=== PATIENT | male | born 1945 ===

== ENCOUNTER 2024-11-04 11:14 | Outpatient (AMB) | payer MEDICARE, SELFPAY ==
--- OUTSIDE RECORDS SUMMARY | 2024-11-04 12:46 | XMS_ITS | Patient Health Record ---
Author Organization [facility] Address [address] [facility] [address] [place] [address] Care Team Providers Care Towboat Captain Name Role Phone Arcadio fishman Primary Care Provider Unavailabl e Allergies Allergen (clinical drug ingredient) Drug/Non Drug Allergy documented on EMR Reaction Allergy Type Onset Date Status seasonal (uncoded) Unknown Allergy A ctive Reason For Referral No Information Medications Medication SIG (Take, Route, Frequency, Duration) Notes Start Date End Date Status Flomax 0.4 MG 1 capsule Orally Once a day Not-Taking Medrol 4 MG as directed Orally Not-Taking oxyCODONE HCl 5 MG 1 tablet as needed for severe pain Orally every 6 hrs; Duration: 5 days 09/12/2021 Not-Taking Multivitamin - 1 tablet Orally Once a day Active Cetirizine HCl 10 MG 1 tablet Orally Once a day Active Atorvastatin Calcium Not-Taking Losartan Potassium 25 MG 1 tablet Orally Once a day 1/2 tablet daily Active Aspirin 325 MG 1 tablet Orally Once a day; Duration: 90 day(s) 09/12/2021 Not-Taking Atorvastatin Calcium 20 MG 1 tablet Orally Once a day Active EpiPen 2-Joni 0.3 MG/0.3ML as directed Injection Not-Taking Levitra 20 MG 1 tablet 60 minutes before sexual activity as needed Orally Once a day Not-Taking Ibuprofen 600 MG 1 tablet with food or milk as needed Orally every 6 hrs; Duration: 30 days 09/12/2021 Not-Taking Acetaminophen Extra Strength 500 MG 1 tablet as needed Orally every 6 hrs; Duration: 30 days 09/12/2021 Not-Taking Problems Problem Type SNOMED Code ICD Code Onset Dates Problem Status W/U Status Risk Notes Problem Calcium deposits in tendon (186283863) 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) Active confirmed Problem Calcaneal spur (41537446) 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 Problem Rupture of left Achilles tendon (6066365475709 9100) Rupture of left Achilles tendon, subsequent encounter (S86.012D) Active confirmed Problem Non-traumatic rupture of Achilles tendon (996887912) 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 Plan Of Treatment Pending Test Test Name Order Date CBC, Platelet; No Differential Ultrasound : Ankle Brachial Indices 05/2021 Ultrasound : Artery Doppler Low Ext Bila t 04/21/2021 X ray : Foot, left 3v 04/21/2021 BASIC METABOLIC PANEL 07/27/2021 WALKING BOOT PNEUMATIC AND/OR VAC 2021 WALKING BOOT PNEUMATIC AND/OR VAC 2021 Insurance Providers Payer Name Payer Address Payer Phone Subscriber Number Group Number Insured Name Patient Relationship to Insured Coverage Start Date Coverage End Date Medicare of [place] [address] [place] [phone] [id number] Kolton Bosch Self - patient is the insured [employer] [address] [place] [address] [phone] [id number] Kolton Bosch Self - patient is the insured Medical (General) History Medical History History ICD Code contact dermatitis coronary atherosclerosis gallstone hyperlipidemia nephrolithiasis history CAD urolithiasis COVID vaccinated X 3 (Moderna) Surgical History Surgery Date(Month/Year) colonoscopy 09/16/2018 rotator cuff repair stent placement for urolithiasis 08/2021 Left Achilles repair with FHL tendon tra nsfer. 08/2021 Hospitalization History Reason Date(Month/Year) Urosepsis 08/2021
--- OUTSIDE RECORDS SUMMARY | 2024-11-04 12:46 | XMS_ITS | Clinical Summary ---
Author Organization [facility] Address [address] [facility] [address] [place] [address] Phone Care Team Providers Care Bilingual Receptionist Name Role Phone Arcadio Rivas DO Primary Care Provider [phone] Allergies No known active allergies Medications aspirin (ST KAREN) 81 MG EC tablet Take 81 mg by mouth 3 Active Multiple Vitamin (MULTIVITAMIN ADULT PO) Daily, 0 Refills, Maintenance, 09/13/22 8:39:00 EDT, Partial fill upon patient request if the prescription is for a schedule II opioid drug. 3 Active atorvastatin (LIPITOR) 20 MG tablet Take 20 mg by mouth 1 (one) time each day Active docusate sodium (COLACE) 100 MG capsule Take 100 mg by mouth 1 (one) time each day Active cetirizine (ZyrTEC) 10 MG tablet Take 10 mg by mouth 1 (one) time each day 2 Active acetaminophen (TYLENOL) 500 MG tablet Take 500 mg by mouth if needed for mild pain Active Active Problems Problem Noted Date Diagnosed Date Constipation 07/24/2023 Coronary atherosclerosis 07/24/2023 Gallstone 07/24/2023 Hyperlipidemia 07/24/2023 Impaired fasting glucose 07/24/2023 Nephrolithiasis 07/24/2023 Obese class I 07/24/2023 Obstructive sleep apnea syndrome 07/24/2023 Encounters Date Type Department Care Team Description 10/09/2024 Orders Only [facility] [address] [phone] Madhu Delcid MD Stone in kidney; Other acute kidney failure (HCC) from Last 3 Months Immunizations Immunization Administration Dates Next Due Influenza Whole 01/08/2019 Influenza, Unspecified 01/05/2022,01/14/2021,02/2018,01/17/2016 Moderna SARS-COV-2 07/29/2021,06/18/2020, 021 Pfizer SARS-COV-2 01/19/2021 Pneumococcal Polysaccharide 09/16/2016 SARS-CoV-2, Unspecified 01/18/2022 Shingrix 01/29/2020 Social History Tobacco Use Types Packs/Day Years Used Date Smoking Tobacco: Never Assessed Sex and Gender Information Value Date Recorded Sex Assigned at Not on file Legal Sex Male 2:00 PM EDT Gender Identity Not on file Sexual Orientation Not on file Last Filed Vital Signs Vital Sign Reading Time Taken Comments Blood Pressure 120/70 05/23/2024 10:17 AM EST Pulse 78 05/23/2024 10:17 AM EST Temperature - - Respiratory Rate - - Oxygen Saturation 98% 05/23/2024 10:17 AM EST Inhaled Oxygen Concentration - - Weight 104 kg (229 lb 12.8 oz) 05/23/2024 10:17 AM EST Height 177.8 cm (5' 10 ) 10/05/2023 10:02 AM EDT Body Mass Index 32.97 10/05/2023 10:02 AM EDT Plan of Treatment Upcoming Encounters Date Type Department Care Team (Late st Contact Info) Description 12/19/2024 9:45 AM EDT Office Visit [facility] [address] [address] Madhu Delcid MD [address] [address] Health Maintenance Due Date Last Done Comments Pneumococcal Vaccine: 50+ Years (2 of 2 - PCV) 09/16/2017 09/16/2016 Influenza Vaccine (#1) 2024 2, 01/14/2021, 01/08/2019, Additional history exists Hepatitis B Vaccine Aged Out No longe r eligible based on patient's age to complete this topic Procedures Procedure Name Priority Date/Time Associated Diagnosis Comments LITHOLINK KIDNEY STONE URINE PANEL Routine 09/25/2024 8:20 AM EDT from Last 3 Months Results * (ABNORMAL) Litholink Kidney Stone Urine Panel, 24 Hour (09/25/2024 8:20 AM EDT) Cystine, Ur CANCELED [facility] Comment: Test not performed. Previous test results on file. Result canceled by the ancillary. Urine Volume (Preservative) 960 500 - 4,000 mL/24 hr [facility] Calcium Oxalate 15.45(H) 6.00 - 10.00 [facility] Calcium, 24H Urine 192 <250 mg/24 hr [facility] Oxalate, 24H Ur 42(H) 20 - 40 mg/24 hr [facility] Citrate, 24H Ur 790 >450 mg/24 hr [facility] Calcium Phosphate Saturation 2.15(H) 0.50 - 2.00 [facility] pH, 24 Hr Urine 5.985 5.800 - 6.200 [facility] Uric Acid Saturation 1.11(H) <1.00 [facility] Uric Acid, 24H Ur 523 <800 mg/24 hr [facility] Sodium, 24H Ur 99 50 - 150 mmol/24 hr [facility] Potassium, 24H Ur 68 20 - 100 mmol/24 hr [facility] Magnesium, 24H Ur 109 30 - 120 mg/24 hr [facility] Phosphorus 24 Hour Urine 858 600 - 1,200 mg/24 hr [facility] Ammonia, 24 hr Urine 17 15 - 60 mmol/24 hr [facility] Chloride, 24H Ur 91 70 - 250 mmol/24 hr [facility] Sulfate, 24H Ur 34 20 - 80 meq/24 hr [facility] Urea Nitrogen, 24H Ur 8.94 6.00 - 14.00 g/24 hr [facility] Protein Catabolic Rate, (14) 0.7(L) 0.8 - 1.4 g/kg/24 hr [facility] Creatinine in 24 hour Urine 1,486 Not Applic. mg/24 hr [facility] Creatinine/KG Body Weight 14.6 11.9 - 24.4 mg/24 hr/kg [facility] Calcium/KG Body Weight 1.9 <4.0 mg/24 hr/kg [facility] Calcium/Creat.R atio 130 34 - 196 mg/g creat [facility] Comment Note [facility] PDF . [facility] 09/25/2024 8:20 AM EDT 09/26/2024 us Madhu Delcid MD LAB URINE ORDERABLES Edited Result - Final [facility] [address] [place] [phone] from Last 3 Months Insurance Medicare [facility] Medicare [facility] Care Teams Bilingual Receptionist Relationship Specialty Start Date End Date Arcadio Rivas DO [address] [place] [address] PCP - General Family Medicine 07/16/23
== END 2024-11-04 11:16 | disposition home or self-care (01) ==
LOC: HO.HMGAL 11:14
PROVIDERS: Visit Provider Registered Nurse Emergency
DX: J30.89 Other allergic rhinitis (principal)
CPT/HCPCS: 95117; 95165

== ENCOUNTER 2024-11-12 14:37 | Outpatient (AMB) | payer MEDICARE, SELFPAY ==
--- OUTSIDE RECORDS SUMMARY | 2024-11-12 15:33 | XMS_ITS | Patient Health Record ---
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
--- OUTSIDE RECORDS SUMMARY | 2024-11-12 15:33 | XMS_ITS | Clinical Summary ---
Author Organization [facility] Address [address] [facility] [address] [place] [address] Phone Care Team Providers Care Grain Trader Name Role Phone Arcadio Rivas DO Primary Care Provider [phone] Allergies No known active allergies Medications aspirin [...] Orders Only [facility] [address] [phone] Madhu Delcid MD Stone in kidney; Other [...] Visit [facility] [address] [address] Madhu Delcid MD [address] [address] Health Maintenance Due Date Last [...] 8:20 AM EDT) Cystine, Ur CANCELED [facility] Comment: Test not performed. Previous test results on file. Result canceled by the ancillary. Urine Volume (Preservative) 960 500 - 4,000 mL/24 hr [facility] Calcium Oxalate 15.45(H) 6.00 - 10.00 [facility] Calcium, 24H Urine 192 <250 mg/24 hr [facility] Oxalate, 24H Ur 42(H) 20 - 40 mg/24 hr [facility] Citrate, 24H Ur 790 >450 mg/24 hr [facility] Calcium Phosphate Saturation 2.15(H) 0.50 - 2.00 [facility] pH, 24 Hr Urine 5.985 5.800 - 6.200 [facility] Uric Acid Saturation 1.11(H) <1.00 [facility] Uric Acid, 24H Ur 523 <800 mg/24 hr [facility] Sodium, 24H Ur 99 50 - 150 mmol/24 hr [facility] Potassium, 24H Ur 68 20 - 100 mmol/24 hr [facility] Magnesium, 24H Ur 109 30 - 120 mg/24 hr [facility] Phosphorus 24 Hour Urine 858 600 - 1,200 mg/24 hr [facility] Ammonia, 24 hr Urine 17 15 - 60 mmol/24 hr [facility] Chloride, 24H Ur 91 70 - 250 mmol/24 hr [facility] Sulfate, 24H Ur 34 20 - 80 meq/24 hr [facility] Urea Nitrogen, 24H Ur 8.94 6.00 - 14.00 g/24 hr [facility] Protein Catabolic Rate, (14) 0.7(L) 0.8 - 1.4 g/kg/24 hr [facility] Creatinine in 24 hour Urine 1,486 Not Applic. mg/24 hr [facility] Creatinine/KG Body Weight 14.6 11.9 - 24.4 mg/24 hr/kg [facility] Calcium/KG Body Weight 1.9 <4.0 mg/24 hr/kg [facility] Calcium/Creat.R atio 130 34 - 196 mg/g creat [facility] Comment Note [facility] PDF . [facility] 09/25/2024 8:20 AM EDT 09/26/2024 us Madhu Delcid MD LAB URINE ORDERABLES Edited Result - Final [facility] [address] [place] [phone] from Last 3 Months Insurance Medicare [facility] Medicare [facility] Care Teams Grain Trader Relationship Specialty Start Date End Date Arcadio Rivas DO [address] [place] [address] PCP - General Family Medicine 07/16/23
== END 2024-11-12 14:44 | disposition home or self-care (01) ==
LOC: HO.HMGAL 14:37
PROVIDERS: Visit Provider Registered Nurse Emergency
DX: J30.89 Other allergic rhinitis (principal)
CPT/HCPCS: 95117; 95165

== ENCOUNTER 2024-11-19 11:03 | Outpatient (AMB) | payer MEDICARE, SELFPAY ==
--- OUTSIDE RECORDS SUMMARY | 2024-11-19 13:28 | XMS_ITS | Clinical Summary ---
Author Organization [facility] Address [address] [facility] [address] [place] [address] Phone Care Team Providers Care Liaison Engineer Name Role Phone Arcadio Rivas DO Primary Care Provider [phone] Allergies No known active allergies Medications aspirin [...] [facility] [address] [phone] Madhu Delcid MD Stone in kidney; Other [...] Visit [facility] [address] [address] Madhu Delcid MD [address] [address] Health Maintenance Due Date Last [...] 8:20 AM EDT) Cystine, Ur CANCELED [facility] Comment: Test not performed. Previous test results on file. Result canceled by the ancillary. Urine Volume (Preservative) 960 500 - 4,000 mL/24 hr [facility] Calcium Oxalate 15.45(H) 6.00 - 10.00 [facility] Calcium, 24H Urine 192 <250 mg/24 hr [facility] Oxalate, 24H Ur 42(H) 20 - 40 mg/24 hr [facility] Citrate, 24H Ur 790 >450 mg/24 hr [facility] Calcium Phosphate Saturation 2.15(H) 0.50 - 2.00 [facility] pH, 24 Hr Urine 5.985 5.800 - 6.200 [facility] Uric Acid Saturation 1.11(H) <1.00 [facility] Uric Acid, 24H Ur 523 <800 mg/24 hr [facility] Sodium, 24H Ur 99 50 - 150 mmol/24 hr [facility] Potassium, 24H Ur 68 20 - 100 mmol/24 hr [facility] Magnesium, 24H Ur 109 30 - 120 mg/24 hr [facility] Phosphorus 24 Hour Urine 858 600 - 1,200 mg/24 hr [facility] Ammonia, 24 hr Urine 17 15 - 60 mmol/24 hr [facility] Chloride, 24H Ur 91 70 - 250 mmol/24 hr [facility] Sulfate, 24H Ur 34 20 - 80 meq/24 hr [facility] Urea Nitrogen, 24H Ur 8.94 6.00 - 14.00 g/24 hr [facility] Protein Catabolic Rate, (14) 0.7(L) 0.8 - 1.4 g/kg/24 hr [facility] Creatinine in 24 hour Urine 1,486 Not Applic. mg/24 hr [facility] Creatinine/KG Body Weight 14.6 11.9 - 24.4 mg/24 hr/kg [facility] Calcium/KG Body Weight 1.9 <4.0 mg/24 hr/kg [facility] Calcium/Creat.R atio 130 34 - 196 mg/g creat [facility] Comment Note [facility] PDF . [facility] 09/25/2024 8:20 AM EDT 09/26/2024 us Madhu Delcid MD LAB URINE ORDERABLES Edited Result - Final [facility] [address] [place] [phone] from Last 3 Months Insurance Medicare [facility] Medicare [facility] Care Teams Liaison Engineer Relationship Specialty Start Date End Date Arcadio Rivas DO [address] [place] [address] PCP - General Family Medicine 07/16/23
== END 2024-11-19 12:52 | disposition home or self-care (01) ==
LOC: HO.HMGAL 11:03
PROVIDERS: Visit Provider Registered Nurse Emergency
DX: J30.89 Other allergic rhinitis (principal)
CPT/HCPCS: 95117; 95165

== ENCOUNTER 2024-11-26 10:59 | Outpatient (AMB) | payer MEDICARE, SELFPAY ==
--- OUTSIDE RECORDS SUMMARY | 2024-11-26 14:00 | XMS_ITS | Patient Health Record ---
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
--- OUTSIDE RECORDS SUMMARY | 2024-11-26 14:00 | XMS_ITS | Clinical Summary ---
Author Organization [facility] Address [address] [facility] [address] [place] [address] Phone Care Team Providers Care Appellate Law Clerk Name Role Phone Arcadio Rivas DO Primary Care Provider [phone] Allergies No known active allergies Medications aspirin [...] Orders Only [facility] [address] [phone] Madhu Delcid MD Stone in kidney; Other [...] Visit [facility] [address] [address] Madhu Delcid MD [address] [address] Health Maintenance Due Date Last [...] 8:20 AM EDT) Cystine, Ur CANCELED [facility] Comment: Test not performed. Previous test results on file. Result canceled by the ancillary. Urine Volume (Preservative) 960 500 - 4,000 mL/24 hr [facility] Calcium Oxalate 15.45(H) 6.00 - 10.00 [facility] Calcium, 24H Urine 192 <250 mg/24 hr [facility] Oxalate, 24H Ur 42(H) 20 - 40 mg/24 hr [facility] Citrate, 24H Ur 790 >450 mg/24 hr [facility] Calcium Phosphate Saturation 2.15(H) 0.50 - 2.00 [facility] pH, 24 Hr Urine 5.985 5.800 - 6.200 [facility] Uric Acid Saturation 1.11(H) <1.00 [facility] Uric Acid, 24H Ur 523 <800 mg/24 hr [facility] Sodium, 24H Ur 99 50 - 150 mmol/24 hr [facility] Potassium, 24H Ur 68 20 - 100 mmol/24 hr [facility] Magnesium, 24H Ur 109 30 - 120 mg/24 hr [facility] Phosphorus 24 Hour Urine 858 600 - 1,200 mg/24 hr [facility] Ammonia, 24 hr Urine 17 15 - 60 mmol/24 hr [facility] Chloride, 24H Ur 91 70 - 250 mmol/24 hr [facility] Sulfate, 24H Ur 34 20 - 80 meq/24 hr [facility] Urea Nitrogen, 24H Ur 8.94 6.00 - 14.00 g/24 hr [facility] Protein Catabolic Rate, (14) 0.7(L) 0.8 - 1.4 g/kg/24 hr [facility] Creatinine in 24 hour Urine 1,486 Not Applic. mg/24 hr [facility] Creatinine/KG Body Weight 14.6 11.9 - 24.4 mg/24 hr/kg [facility] Calcium/KG Body Weight 1.9 <4.0 mg/24 hr/kg [facility] Calcium/Creat.R atio 130 34 - 196 mg/g creat [facility] Comment Note [facility] PDF . [facility] 09/25/2024 8:20 AM EDT 09/26/2024 us Madhu Delcid MD LAB URINE ORDERABLES Edited Result - Final [facility] [address] [place] [phone] from Last [address] [facility] Medicare [facility] Care Teams Appellate Law Clerk Relationship Specialty Start Date End Date Arcadio Rivas DO [address] [place] [address] PCP - General Family Medicine 07/16/23
== END 2024-11-26 11:10 | disposition home or self-care (01) ==
LOC: HO.HMGAL 10:59
PROVIDERS: Visit Provider Registered Nurse Emergency
DX: J30.89 Other allergic rhinitis (principal)
CPT/HCPCS: 95117; 95165

== ENCOUNTER 2024-12-01 11:18 | Outpatient (AMB) | payer MEDICARE, SELFPAY ==
--- OUTSIDE RECORDS SUMMARY | 2024-12-01 15:20 | XMS_ITS | Patient Health Record ---
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
--- OUTSIDE RECORDS SUMMARY | 2024-12-01 15:20 | XMS_ITS | Clinical Summary ---
Author Organization [facility] Address [address] [facility] [address] [place] [address] Phone Care Team Providers Care Plant Buyer Name Role Phone Arcadio Rivas DO Primary Care Provider [phone] Allergies No known active allergies Medications aspirin [...] Orders Only [facility] [address] [phone] Madhu Delcid MD Stone in kidney; Other [...] Visit [facility] [address] [address] Madhu Delcid MD [address] [address] Health Maintenance Due Date Last [...] 8:20 AM EDT) Cystine, Ur CANCELED [facility] Comment: Test not performed. Previous test results on file. Result canceled by the ancillary. Urine Volume (Preservative) 960 500 - 4,000 mL/24 hr [facility] Calcium Oxalate 15.45(H) 6.00 - 10.00 [facility] Calcium, 24H Urine 192 <250 mg/24 hr [facility] Oxalate, 24H Ur 42(H) 20 - 40 mg/24 hr [facility] Citrate, 24H Ur 790 >450 mg/24 hr [facility] Calcium Phosphate Saturation 2.15(H) 0.50 - 2.00 [facility] pH, 24 Hr Urine 5.985 5.800 - 6.200 [facility] Uric Acid Saturation 1.11(H) <1.00 [facility] Uric Acid, 24H Ur 523 <800 mg/24 hr [facility] Sodium, 24H Ur 99 50 - 150 mmol/24 hr [facility] Potassium, 24H Ur 68 20 - 100 mmol/24 hr [facility] Magnesium, 24H Ur 109 30 - 120 mg/24 hr [facility] Phosphorus 24 Hour Urine 858 600 - 1,200 mg/24 hr [facility] Ammonia, 24 hr Urine 17 15 - 60 mmol/24 hr [facility] Chloride, 24H Ur 91 70 - 250 mmol/24 hr [facility] Sulfate, 24H Ur 34 20 - 80 meq/24 hr [facility] Urea Nitrogen, 24H Ur 8.94 6.00 - 14.00 g/24 hr [facility] Protein Catabolic Rate, (14) 0.7(L) 0.8 - 1.4 g/kg/24 hr [facility] Creatinine in 24 hour Urine 1,486 Not Applic. mg/24 hr [facility] Creatinine/KG Body Weight 14.6 11.9 - 24.4 mg/24 hr/kg [facility] Calcium/KG Body Weight 1.9 <4.0 mg/24 hr/kg [facility] Calcium/Creat.R atio 130 34 - 196 mg/g creat [facility] Comment Note [facility] PDF . [facility] 09/25/2024 8:20 AM EDT 09/26/2024 us Madhu Delcid MD LAB URINE ORDERABLES Edited Result - Final [facility] [address] [place] [phone] from Last 3 Months Insurance Medicare [facility] Medicare [facility] Care Teams Plant Buyer Relationship Specialty Start Date End Date Arcadio Rivas DO [address] [place] [address] PCP - General Family Medicine 07/16/23
== END 2024-12-01 11:21 | disposition home or self-care (01) ==
LOC: HO.HMGAL 11:18
PROVIDERS: Visit Provider Registered Nurse Emergency
DX: J30.89 Other allergic rhinitis (principal)
CPT/HCPCS: 95117; 95165

== ENCOUNTER 2024-12-08 11:43 | Outpatient (AMB) | payer MEDICARE, SELFPAY ==
--- OUTSIDE RECORDS SUMMARY | 2024-12-08 14:28 | XMS_ITS | Patient Health Record ---
Author Organization [facility] Address [address] 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
--- OUTSIDE RECORDS SUMMARY | 2024-12-08 14:28 | XMS_ITS | Clinical Summary ---
Author Organization [facility] Address [address] [facility] [address] [place] [address] Phone Care Team Providers Care Sausage Smoker Name Role Phone Arcadio Rivas DO Primary Care Provider [phone] Allergies No known active allergies Medications aspirin [...] Orders Only [facility] [address] [id number] Madhu Delcid MD Stone in kidney; Other [...] Visit [facility] [address] [phone] Madhu Delcid MD [address] [phone] Health Maintenance Due Date Last [...] 8:20 AM EDT) Cystine, Ur CANCELED [facility] Comment: Test not performed. Previous test results on file. Result canceled by the ancillary. Urine Volume (Preservative) 960 500 - 4,000 mL/24 hr [facility] Calcium Oxalate 15.45(H) 6.00 - 10.00 [facility] Calcium, 24H Urine 192 <250 mg/24 hr [facility] Oxalate, 24H Ur 42(H) 20 - 40 mg/24 hr [facility] Citrate, 24H Ur 790 >450 mg/24 hr [facility] Calcium Phosphate Saturation 2.15(H) 0.50 - 2.00 [facility] pH, 24 Hr Urine 5.985 5.800 - 6.200 [facility] Uric Acid Saturation 1.11(H) <1.00 [facility] Uric Acid, 24H Ur 523 <800 mg/24 hr [facility] Sodium, 24H Ur 99 50 - 150 mmol/24 hr [facility] Potassium, 24H Ur 68 20 - 100 mmol/24 hr [facility] Magnesium, 24H Ur 109 30 - 120 mg/24 hr [facility] Phosphorus 24 Hour Urine 858 600 - 1,200 mg/24 hr [facility] Ammonia, 24 hr Urine 17 15 - 60 mmol/24 hr [facility] Chloride, 24H Ur 91 70 - 250 mmol/24 hr [facility] Sulfate, 24H Ur 34 20 - 80 meq/24 hr [facility] Urea Nitrogen, 24H Ur 8.94 6.00 - 14.00 g/24 hr [facility] Protein Catabolic Rate, (14) 0.7(L) 0.8 - 1.4 g/kg/24 hr [facility] Creatinine in 24 hour Urine 1,486 Not Applic. mg/24 hr [facility] Creatinine/KG Body Weight 14.6 11.9 - 24.4 mg/24 hr/kg [facility] Calcium/KG Body Weight 1.9 <4.0 mg/24 hr/kg [facility] Calcium/Creat.R atio 130 34 - 196 mg/g creat [facility] Comment Note [facility] PDF . [facility] 09/25/2024 8:20 AM EDT 09/26/2024 us Madhu Delcid MD LAB URINE ORDERABLES Edited Result - Final [facility] [address] [place] [id number] from Last 3 Months Insurance Medicare [facility] Medicare [facility] Care Teams Sausage Smoker Relationship Specialty Start Date End Date Arcadio Rivas DO [address] [place] [address] PCP - General Family Medicine 07/16/23
== END 2024-12-08 11:53 | disposition home or self-care (01) ==
LOC: HO.HMGAL 11:43
PROVIDERS: PCP Nurse Practitioner; Visit Provider Registered Nurse Emergency
DX: J30.89 Other allergic rhinitis (principal)
CPT/HCPCS: 95117; 95165

== ENCOUNTER 2024-12-31 11:39 | Outpatient (AMB) | payer MEDICARE, SELFPAY ==
--- OUTSIDE RECORDS SUMMARY | 2024-12-31 14:46 | XMS_ITS | Data Portability ---
Author Organization [place] - [facility] Address [address] [place] [id number] Care Team Providers Care Race Starter Name Role Phone ELIZABETH OLSON Primary Care Provider Assessment Encounter Date Assessment Date Assessment LastModified by Organization Details LastModified Time 10/27/2019 10/27/2019 Overview/History :T his is a 74-year-old male that is a new patient [facility]. He contacted [facility] for COVID-19 testing. He recently was on vacation out of state and her masters is law is required to have either a negative COVID test or complete a 14 day in home quarantine after re entering the state. He is denying any symptoms concerning for COVID-19 N denies contact with anyone who has been positive for COVID-19. Exam: On exam patient is awake and alert, afebrile and hemodynamically stable. He had palpable pulses, there was question of possibly having a pause. ECG obtained shows sinus arrhythmia with evidence of incomplete right bundle branch block. He denies any cardiac history. DDx considered, but not limited to:Not an urgent care visit, asymptomatic COVID testing. Work up/Results:COVID-1 9 test pending. ECG showing sinus arrhythmia with incomplete right bundle branch block. Plan/Discussion:I discussed with the patient the findings on his ECG. I did reassure him that he does not have a concerning arrhythmia. He is not having any chest symptoms. I also discussed it and that has COVID testing results will likely be back in 24-48 hours, possibly longer. We will be in touch with him once we have those results. Proper Personal Protective Equipment (PPE), including gloves, eye protection, N95 mask, gown, and shoe covers were donned and doffed appropriately and all equipment cleaned using approved technique with germicidal disposable wipes prior to and after care of this patient according to [facility]'s infection prevention protocols. The patient under our care today has requested testing for the COVID-19 virus. Currently, they are asymptomatic. Testing was discussed with the patient to ensure understanding of the limitations of this test, including the fact that a negative test does not entirely exclude the possibility of COVID-19 infection. Based on the history obtained and exam today, the decision was made to test for COVID-19 in light of the current pandemic state. The patient was involved in the decision to test using a shared medical decision-making model. Time On Scene with Patient: 00:48:16 [email or web address] Not available 10/27/2019 21:39:17 08/03/2020 08/03/2020 Overview/History : 74yo male who is known to but new to this provider with a PMHx of hyperlipdemia being seen for cold symptoms. He reports he had a runny nose, congestion, fatigue and cough that began 1 week ago. He was around his grandchildren who had colds. His is also having cold symptoms but feels better. Patient reports lingering cough with yellow sputum production persists. He denies any fevers, CP, SOB, N/V. He did have diarrhea a few days ago that has resolved. He has a mild sore throat, denies pain with swallowing or any otalgia. He has a hx of seasonal allergies for which he receives allergy shots but cancelled last weeks appt d/t not feeling well. He has a sleep study coming up in August. He has a hx of pneumonia. Exam: Pt is alert, non toxic appearing PERRLA, normal mucous membranes- non injected conjunctiva Ears: normal TM with cone of light visualized bilaterally, no erythema or foreign objects visualized R ear, mild eyrthema and mod cerumen noted L ear Nose: turbinates pink, non boggy, no erythema, no evidence of bleeding or discharge, normal mucous membranes. Throat: moist mucous membranes, no evidence of thrush, erythema noted in pharynx, no exudate noted in oropharynx. Frontal and maxillary sinuses non-tender. No lymphadenopathy PULMONARY: Respiration's normal on room air, no evidence of accessory muscle use. Breath sounds clear L side, R side has scattered rhonchi, no wheeze or rales on auscultation. Speaks in full sentences, no increased work of breathing. CARDIOVASCULAR: Heart rate regular, regular rhythm, S1 and S2 auscultated. Normal pulses, no edema noted on exam. Abdomen- Soft, non-tender to palpation. Positive bowel sounds to all four quadrants. DDx considered, but not limited to: Viral respiratory infection most likely Pneumonia considered- no fevers but having sputum production & rhonchi R side Strep considered- erythema noted in pharynx however no exudate Otitis media considered- mild erythema L ear with cerumen- no otalgia Flu less likely- no bodyaches or high fevers Covid considered however he is fully vaccinated- Grandkids tested (-) Work up/Results: CXR Throat swab/Strep Plan/Discussion: Discussed he has some rhonchi in R lung- will ordered a CXR to r/o pneumonia- likely has a viral infection. Will send throat swab to r/o strep- no exudate noted but does have some erythema. He denies any otalgia- no indication to begin antibiotics. Will prescribe Tessalon Perles to be taken as needed for cough. Discussed: -Gargling with warm water and salt- spit. -Stay hydrated. -May take Tylenol/Motrin as needed for fever or discomfort. -Rest. -Perform good handwashing. -Replace tooth brushes. -We will call with results of CXR and throat swab. -ED precautions reviewed- including SOB or high fevers. -The patient is advised to make an appt with PCP to discuss ongoing symptoms/ further management. The patient is also advised to go to the ED immediately for any worsening symptoms. The patient understood and agreed with this plan. The patient was given discharge instructions and all questions were answered prior to DH team departure. In order to obtain further information and compare any laboratory results/values, I have accessed patient records on the [employer]. This information was pertinent in my medical decision making today. Proper Personal Protective Equipment (PPE), including gloves, eye protection and masks were donned and doffed appropriately and all equipment cleaned using approved technique with germicidal disposable wipes prior to and after care of this patient according to [facility] infection prevention protocols. [email or web address] Not available 08/03/2020 12:59:46 Plan of Treatment Reminders Order Date Submit Date Provider Last Modified By Organization Details Last Modified Time Details Appointments None recorded. 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 Procedures None recorded. Surgeries None recorded. Imaging XR, chest, 2 view - evaluate for pneumonia 2020 [facility] (Radiology), [address] [place] [address], [address], 15:36:36 Medication Orders benzonatate 100 mg capsule 2020 [email or web address] [facility] #[id number], [address] [place] [address], [address], 14:02:49 Patient TargetsNo targets recorded. Patient Instructions Encounter Date Encounter Id Patient Instructions Last Modified By Organization Details Last Modified Time 10/27/[id number] WE CHECKED AN EC G ON YOU TODAY, YOU WERE FOUND TO HAVE SINUS ARRHYTHMIA, THIS IS BENIGN You will be advised of your COVID-19 results as they become available. A [facility] steam drier tender will contact you to let you know the results. We will also communicate the results to your primary care provider if you have one for any follow up needs you may have. Since you do not have symptoms currently, there is no recommendation to self-quarantine. Please continue to wash your hands and practice social distancing as recommended by your local government and public health agencies. If you develop mild symptoms, stay home and isolate yourself. Please continue to monitor the CDC website as the recommendations for length of quarantine change as additional information is released on this virus. Symptoms of Coronavirus What you need to know Anyone can have mild to severe symptoms. Older adults and people who have severe underlying medical conditions like heart or lung disease or diabetes seem to be at higher risk for developing more serious complications from COVID-19 illness. Watch for symptoms People with COVID-19 have had a wide range of symptoms reported ranging from mild symptoms to severe illness. Symptoms may appear 2-14 days after exposure to the virus. People with these symptoms may have COVID-19: Fever or chills Cough Shortness of breath or difficulty breathing Fatigue Muscle or body aches Headache New loss of taste or smell Sore throat Congestion or runny nose Nausea or vomiting Diarrhea This list does not include all possible symptoms. The CDC will continue to update this list as we learn more about COVID-19. When to Seek Emergency Medical Attention Look for emergency warning signs* for COVID-19. If someone is showing any of these signs, seek emergency medical care immediately Trouble breathing Persistent pain or pressure in the chest New confusion Inability to wake or stay awake Bluish lips or face *This list does not include all possible symptoms. Please call your medical provider for any other symptoms that are severe or concerning to you. Call 911 or call ahead to your local emergency facility: Notify the pulpit operator that you are seeking care for someone who has or may have COVID-19. [email or web address] Not available 10/27/2019 19:43:16 08/03/2020 [id number] We have ordered a CXR. Please bring paper to [facility] to have CXR obtained. We will call you with the results. We have also done a throat swab- this may take 3-4 days for results, we will call you when they arrive. Try to gargle with warm water and salt- spit. Stay hydrated. May take Tylenol/Motrin as needed for fever or discomfort. Rest. Perform good handwashing. Please seek care immediately if you develop any of the following symptoms: 1. Uncontrolled fever of at least 101 F or 38.4 C 2. Throat pain that is severe or does not start to improve within 5 to 7 days Call 911 or go to the emergency department if you: 1. Have trouble breathing 2. Cannot control your saliva (drooling) due to difficulty swallowing 3. Have swelling of the neck or tongue 4. Cannot move your neck or have trouble opening your mouth If you have additional concerns or develop a change in your condition between 8am-10pm, please call [facility] at [phone] to help navigate your care. [email or web address] Not available 08/03/2020 12:23:39 Reason for Referral None Reported. 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 Note: If clini peggy suspi cion for COVID -19 is high, emely nue to maint ain preca ution s and consi steve repea t testi ng. Resul t repor ludin to [facility]. To preve nt error s in diagn osis, test resul ts shoul d be inter prete d in the jono xt of clini peggy findi ngs and other labor atory data. Rare polym orphi sms exist that could lead to false -nega tive or false -posi tive resul ts. If resul ts obtai moi do not match the clini peggy findi ngs, addit ional testi ng shoul d be consi dered . This test has been autho rized by the FDA under an Emerg ency Use Autho rizat ion (EUA) for use by autho rized labor atori es. Testi ng perfo rmed by real time PCR utili [facility] SARS- CoV-2 test. Not Available [facility] (Centralized Electronic Ordering - All Locations) Patient Can Go To The Location Of Their Choice, [id number] 10/28/2019 16:06:14 08/04/1908/04/2020 cultu re throhaider t specimen description THROAT SWAB Not Available [facility] (Centralized Electronic Ordering - All Locations) Patient Can Go To The Location Of Their Choice, [id number] 08/06/2020 07:24:37 08/04/1908/04/2020 cultu re, throa t special requests NONE Not Available [facility] (Centralized Electronic Ordering - All Locations) Patient Can Go To The Location Of Their Choice, 08/06/2020 07:24:37 08/04/1908/06/2020 cultu re, throa t culture 4+ NORMAL [place] Not Available [facility] (Centralized Electronic Ordering - All Locations) Patient Can Go To The Location Of Their Choice, 08/06/2020 07:24:37 08/04/1908/06/2020 cultu re, throa t report status FINAL 2020 Not Available [facility] (Centralized Electronic Ordering - All Locations) Patient Can Go To The Location Of Their Choice, 08/06/2020 07:24:37 08/04/1908/04/2020 strep tococ cus group A, cultu re, throa t specimen description THROAT SWAB Not Available [facility] (Centralized Electronic Ordering - All Locations) Patient Can Go To The Location Of Their Choice, 08/06/2020 07:25:28 08/04/1908/04/2020 strep tococ cus group A, cultu re, throa t special requests NONE Not Available [facility] (Centralized Electronic Ordering - All Locations) Patient Can Go To The Location Of Their Choice, 08/06/2020 07:25:28 08/04/1908/06/2020 strep tococ cus group A, cultu re, throa t culture NO GROUP A BETA HEMOLY TIC STREPT OCOCCI ISOLAT ED Not Available [facility] (Centralized Electronic Ordering - All Locations) Patient Can Go To The Location Of Their Choice, 08/06/2020 07:25:28 08/04/1908/06/2020 strep tococ cus group A, cultu re, throa t report status FINAL 2020 Not Available [facility] (Centralized Electronic Ordering - All Locations) Patient Can Go To The Location Of Their Choice, 08/06/2020 07:25:28 11/06/19 20 10/27/2019 kwabena brown am No observ ation record ed. Not Available 2019 14:14:52 08/04/19 21 08/03/2020 XR, chest , 2 view No observ ation record ed. [email or web address] [facility] [address] [facility] [address], [place], [address], 08/03/2020 18:06:34 Result Notes None recorded. Procedures Surgical History Date Name Laterality Status Provider Name and Address Organization Details Recorded Time 08/04/19 Medication Review completed Edel Marie NP [address], [place], [address], [place] - [facility] 08/03/2020 11:54:59 10/27/19 ECG Interpretation - DH completed DAISY SEGUNDO NP [address], [place], [address], [place] - [facility] 10/27/2019 19:42:17 Imaging Results None recorded. Procedure Notes None recorded. Medical Equipment None Reported. Allergies No known drug allergies Medications Name Sig Start Date Stop Date Status Note LastModified by Organization Details LastModified Time neomycin-po lymyxin-hyd rocort 3.5 mg/mL-10,00 0 unit/mL-1 % ear solution INSTILL 5 DROPS DAILY INTO BOTH EARS DAILY 10/26 completed Not Available Not Available Not Available atorvastati n 20 mg tablet TAKE 1 TABLET BY MOUTH EVERY DAY active Not Available Not Available No t Available benzonatate 100 mg capsule Take 1 capsule 3 times a day by oral route as needed for 5 days. 2020 active Not Available Not Available Not Avai lable piroxicam 20 mg capsule 1 CAPSULE BY MOUTH DAILY TAKE ONE A DAY AFTER EATING, STOP AND CALL IF STOMACH UPSET OCCURS 10/26 completed Not Available Not Available Not Available vardenafil 20 mg tablet TAKE 1 TABLET BY MOUTH DAILY NEEDED FOR ERECTILE DYSFUNCTI ON active Not Available Not Available No t Available Javier Aspirin active Not Available Not Available Not Available Readi-Cat 2 2 % (w/v) oral suspension DRINK 1 BOTTLE NIGHT BEFORE TEST, AND 1 BOTTLE 60 MINUTES PRIOR TO TEST 10/26 completed Not Available Not Available Not Available Vitals Date Recorded Body temperature Respiratory rate Oxygen saturation Oxygen saturation in Arterial blood by Pulse oximetry Heart rate Systolic And Diastolic Provider Name and Address Organization Details Last Updated DateTime 96.4 [degF] 18 /min 95 % 95 % 72 /min 122/70 mm[Hg] Not Available [facility] 1 12:19:46 Date Recorded Respiratory rate Body temperature Heart rate Oxygen saturation Oxygen saturation in Arterial blood by Pulse oximetry Systolic And Diastolic Provider Name and Address Organization Details Last Updated DateTime 0 14 /min 97.6 [degF] 64 /min 98 % 98 % 92/54 mm[Hg] Not Available [facility] 0 19:57:12 Social History Question Answer Notes LastModified by Organizat ion Details LastModified Time Tobacco Smoking Status Never Smoker DAISY SEGUNDO NP [address], [place], [address], [place] - [facility] 10/27/2019 19:11:55 Do You Have An Advance Directive? No [email or web address] Information not available 10/27/2019 What Is Your Code Status? Full Code [email or web address] Information not available 10/27/2019 Within The Past 12 Months, Has It Happened That The Food You Bought Just Didn't Last And You Didn't Have Money To Get More. No [email or web address] Information not available 10/27/2019 Within The Past 12 Months, Have You Worried That Your Food Would Run Out Before You Got Money To Buy More. No [email or web address] Information not available 10/27/2019 Fall Risk: Do You Feel Unsteady When Standing Or Walking? No [email or web address] Information not available 10/27/2019 We Know That How And When People Interact With Friends And Family Can Be Very Different From Person To Person. How Often Do You Have The Opportunity To See Or Talk To People That You Care About And Feel Close To? (Ex: Talking To Friends On The Phone Or Visiting Friends Or Family Or Going To Nondenominational Or Club Meetings) 3 Or 4 Times Per Week [email or web address] Information not available 10/27/2019 Excessive Alcohol Or Drug Use No [email or web address] Information not available 10/27/2019 We Know From Many Of Our Patients That Covering All Of Their Costs Can Be Difficult At Times. This Can Cause Stress And Impact Health. In The Past Year, Have You Been Unable To Get Any Of The Following When It Was Really Needed? No [email or web address] Information not available 10/27/2019 What Is Your Housing Situation Today? I Have Housing [email or web address] Information not available 10/27/2019 Would You Like Help Connecting To Resources? None [email or web address] Information not available 10/27/2019 Sex: Unknown Functional Status None recorded. Mental Status None recorded. Family History Relationship Description Onset Age of this Age Resolved Age Notes LastModified by Organization Details LastModified Time Father Coronary arterioscler osis [email or web address] Not available 12/2019 19:12:27 Medical History Condition Response Diabetes N Coronary Artery Disease N High Cholesterol Y Pulmonary Embolism N Cancer N Hypertension N Stroke N Asthma N COPD N Depression N Kidney Disease N Past Encounters Encounter ID Performer Location Encounter Start Date Encounter Closed Date Diagnosis/Indication Diagnosis SNOMED-CT Code Diagnosis ICD10 Code Diagnosis IMO Codes Diagnosis Note [id number] DAISY SEGUNDO NP [facility] [address] [place] [address] 10/27/2019 19:09:51 10/30/2019 11:37:39 Exposure to communicable disease 611456751 Z20.828 ECG: sinus arrhythmia 42 8603107 R94.31 [id number] Edel Marie NP [facility] [address] [place] [address] 08/03/2020 11:34:33 08/04/2020 11:13:18 Productive cough 29204202 R05 Acute pharyngitis 278600 003 J02.9 Viral uppe r respiratory tract infection 954647656 J06.9 Health Concerns Section Related Observation LastModified by Organization Detai ls LastModified Time None Recorded Concern Status LastModified by Organization Details LastModified Time None Recorded Advance Directives Directive N: Payers Insurance Date Sequence Insurance Name Policy Number Policy Zamorano Covered Member ID Zamorano Member ID Guarantor Name 08/04/2020 1 [place] Kolton Bosch [id number] Kolton Bosch 08/04/2020 2 [place] Kolton Bosch [id number] Kolton Bosch 10/27/2019 1 *SELF PAY* Kolton Bosch [id number] Kolton Bosch 10/30/2019 2 [facility] Kolton Bosch [id number] Kolton Bosch Notes Date Note Type Note Provider Name and Address Organization Details Recorded Time 10/27/2019 text/html COVID-19 Symptom s July 2019Reported by Patient This is a 74-year-old male that is a new patient [facility]. He has medical history significant for hyperlipidemia. He was recently on vacation in the [facility]. He contacted [facility] for COVID testing as it is now requirement that if 1 leaves the state upon return they must either have a negative COVID test or complete a 14 day and home quarantine. He is denying any fevers, cough, GI symptoms or loss of sensation of taste or smell. He denies contact with anyone known to have COVID 19. DAISY SEGUNDO NP [address], [place], [address], [place] - [facility] 10/27/2019 21:39:23 08/03/2020 text/html COVID-19 Symptom s July 2019Reported by Patient This is a 74-year-old male that is known to [facility] but new to this provider with a past medical history significant for hyperlipidemia being seen for a lingering cold. He reports his symptoms started over 1 week ago and include a cough with yellow phlegm and fatigue. He is denying any fevers, headaches, body aches, CP, SOB, GI symptoms or loss of sensation of taste or smell. He denies contact with anyone known to have COVID 19. He was exposed to his grandchildren who both have colds. Nothing has made his symptoms better or worse. He has never had a lingering cold like this in the past. Admits to seasonal allergies for which he receives weekly allergy injections and hx of pneumonia. Edel Marie NP [address], [place], [address], [place] - [facility] 08/03/2020 14:06:32
== END 2024-12-31 11:39 | disposition home or self-care (01) ==
LOC: HO.HMGAL 11:39
PROVIDERS: PCP Nurse Practitioner; Visit Provider Registered Nurse Emergency
DX: J30.89 Other allergic rhinitis (principal)
CPT/HCPCS: 95117; 95165

== ENCOUNTER 2025-01-12 11:13 | Outpatient (AMB) | payer MEDICARE, SELFPAY ==
--- OUTSIDE RECORDS SUMMARY | 2025-01-12 14:20 | XMS_ITS | Clinical Summary ---
Author Organization [facility] Address [address] [address] Phone Care Team Providers Care Conductor Freight Name Role Phone Arcadio Rivas DO Primary Care Provider [phone] Allergies No known active allergies Medications aspirin (ST KAREN) 81 MG EC tablet Take 81 mg by mouth 09/14/19 23 Active Multiple Vitamin (MULTIVITAMIN ADULT PO) Daily, 0 Refills, Maintenance, 09/13/22 8:39:00 EDT, Partial fill upon patient request if the prescription is for a schedule II opioid drug. 09/14/19 23 Active atorvastatin (LIPITOR) 20 MG tablet Take 20 mg by mouth 1 (one) time each day Active docusate sodium (COLACE) 100 MG capsule Take 100 mg by mouth 1 (one) time each day Active cetirizine (ZyrTEC) 10 MG tablet Take 10 mg by mouth 1 (one) time each day 08/18/19 22 Active acetaminophen (TYLENOL) 500 MG tablet Take 500 mg by mouth if needed for mild pain Active tamsulosin (FLOMAX) 0.4 MG 24 hr capsule Take 0.4 mg by mouth every night 025 Discontinued Active Problems Problem Noted Date Diagnosed Date Constipation 07/24/2023 Coronary atherosclerosis 07/24/2023 Gallstone 07/24/2023 Hyperlipidemia 07/24/2023 Impaired fasting glucose 07/24/2023 Nephrolithiasis 07/24/2023 Obese class I 07/24/2023 Obstructive sleep apnea syndrome 07/24/2023 Encounters Date Type Department Care Team Description 12/19/2024 9:45 AM EDT Office Visit [facility] [address] [address] Madhu Delcid MD Stone in kidney (Primary Dx); Stage 3b chronic kidney disease (HCC) from Last 3 Months Immunizations Immunization [...] Sign Reading Time Taken Comments Blood Pressure 104/64 12/19/2024 9:39 AM EDT Pulse 67 12/19/2024 9:39 AM EDT Temperature - - Respiratory Rate - - Oxygen Saturation 95% 12/19/2024 9:39 AM EDT Inhaled Oxygen Concentration - - Weight 103 kg (227 lb 12.8 oz) 12/19/2024 9:39 A M EDT Height 177.8 cm (5' 10 ) 10/05/2023 10:02 AM EDT Body Mass Index 32.69 10/05/2023 10:02 AM EDT Plan of Treatment Upcoming Encounters Date Type Department Care Team (Late st Contact Info) Description 06/23/2025 1:30 PM EDT Office Visit [facility] [address] [phone] Madhu Delcid MD [address] [address] Health Maintenance Due Date Last Done Comments Pneumococcal Vaccine: 50+ Years (2 of 2 - PCV) 09/16/2017 09/16/2016 Influenza Vaccine (#1) 2024 2, 01/14/2021, 01/08/2019, Additional history exists Hepatitis B Vaccine Aged Out No longe r eligible based on patient's age to complete this topic Procedures Procedure Name Priority Date/Time Associated Diagnosis Comments EXT RESULT ENTRY Routine 11/10/2024 from Last 3 Months Results * (ABNORMAL) EXT RESULT ENTRY (11/10/2024) WBC 4.3 3.3 - 10.0 10*3/ML Red Blood Cell Count 4.59 Hemoglobin 15.2 13.5 - 17.5 Hematocrit 44.7 41.0 - 53.0 Platelets 151 150 - 399 10*3/UL MCV 97.0 82.0 - 108.0 Neutrophils Absolute 2.50 1.30 - 8.30 10*3/UL Lymphocytes Absolute 1.00(A) 1.40 - 2.90 10*3/UL Monocytes Absolute 0.40 0.20 - 0.80 10*3/UL Eosinophils Absolute 0.30 0.20 - 0.70 10*3/UL Sodium 140 137 - 147 Potassium 4.4 3.4 - 5.5 Chloride 104.0 99.0 - 108.0 Carbon Dioxide 21 mmol/L Anion Gap 15.0 <=30 MMOL/L Glucose 101 60 - 200 BUN 16 4 - 21 mg/dL Creatinine 0.98 0.60 - 1.30 mg/dL Total Protein 5.6(A) 6.4 - 8.2 G/DL BUN/Creatinine Ratio 16 Albumin 3.9 3.5 - 5.0 g/dL Calcium 9.2 8.7 - 10.7 mg/dL eGFR Non-Afr English 78 Total Bilirubin 1.70 MG/DL ALT (SGPT) 18 U/L AST (SGOT) 22 U/L Alkaline Phosphatase 55 U/L Hemoglobin A1C 6.0 4.0 - 6.0 Triglycerides 57 Cholesterol, Total 117 HDL 59 mg/dL VLDL Cholesterol Michael 13 LDL-Calculated 45 Non HDL Cholesterol 58 11/10/2024 us Historical Provider LAB BLOOD ORDERABLES Chiquita l Result from Last 3 Months Insurance Medicare [facility] Medicare [facility] Care Teams Conductor Freight Relationship Specialty Start Date End Date Arcadio Rivas DO [address] [place] [address] PCP - General Family Medicine 07/16/23
--- OUTSIDE RECORDS SUMMARY | 2025-01-12 14:20 | XMS_ITS | Patient Health Record ---
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
== END 2025-01-12 11:14 | disposition home or self-care (01) ==
LOC: HO.HMGAL 11:13
PROVIDERS: PCP Nurse Practitioner; Visit Provider Registered Nurse Emergency
DX: J30.89 Other allergic rhinitis (principal)
CPT/HCPCS: 95117; 95165

== ENCOUNTER 2025-01-19 11:31 | Outpatient (AMB) | payer MEDICARE, SELFPAY ==
--- OUTSIDE RECORDS SUMMARY | 2025-01-19 14:39 | XMS_ITS | Patient Health Record ---
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
--- OUTSIDE RECORDS SUMMARY | 2025-01-19 14:39 | XMS_ITS | Data Portability ---
Author Organization [place] Pending [place] [facility] Address [address] [place] [address] Care Team Providers Care Patrol Deputy Sheriff Name Role Phone ELIZABETH OLSON Primary Care Provider Assessment Encounter Date Assessment Date Assessment LastModified by Organization Details LastModified Time 10/27/2019 10/27/2019 Overview/History :T his is a 74-year-old male that is a [facility] patient [facility]. [facility]. He recently was on [...] after care of this patient according to [facility]'s infection prevention protocols. The patient under our [...] model. Time On Scene with Patient: 00:48:16 [email or web address] Not available 10/27/2019 21:39:17 08/03/2020 08/03/2020 Overview/History [...] after care of this [facility]. [email or web address] Not available 08/03/2020 12:59:46 Plan of Treatment Reminders Order Date Submit Date Provider Last Modified By Organization Details Last Modified Time Details Appointments None recorded. Lab streptococc us group A, culture, throat 2020 [place] [facility] (Centralized Electronic Ordering - All Locations), Patient Can Go To The Location Of Their Choice, [address] 07:25:28 culture, throat 2020 [place] [facility] (Centralized Electronic Ordering - All Locations), Patient Can Go To The Location Of Their Choice, 07:24:37 SARS CoV 2 RNA (COVID-19), QL, map clerk-PCR, respiratory specimen 2019 020 [place] [facility] (Centralized Electronic Ordering - All Locations), Patient Can Go To The Location Of Their Choice, [address] 0 16:06:14 Referral None recorded. Procedures None recorded. Surgeries None recorded. Imaging XR, chest, 2 view - evaluate for pneumonia [address] [facility] (Radiology), [address] [place] [address], [address], 15:36:36 Medication Orders benzonatate 100 mg capsule 2020 [email or web address] [id number], [address] [place] [address], [address], 14:02:49 Patient TargetsNo targets recorded. Patient Instructions Encounter Date Encounter Id Patient Instructions Last Modified By Organization Details Last Modified Time 10/27/[id number] WE CHECKED AN EC G ON YOU TODAY, YOU WERE FOUND TO HAVE SINUS ARRHYTHMIA, THIS IS BENIGN You will be advised of your COVID-19 results as they become available. A [facility] steam box tender will contact you to let you [...] to your local emergency facility: Notify the tire regrooving machine operator that you are seeking care for someone who has or may have COVID-19. [email or web address] Not available 10/27/2019 19:43:16 08/03/2020 [id number] We have ordered a CXR. Please bring paper to [facility] to have CXR obtained. We will call [...] condition between 8am-10pm, please call [facility] at [phone] to help navigate your care. [email or web address] Not available 08/03/2020 12:23:39 Reason for Referral None Reported. Results Created Date Observation Date Name Description Value Unit Range Abnormal Flag Note LastModifiedBy Organization Detail LastModifiedTime 10/27/19 20 10/28/2019 SARS CoV 2 RNA (COVI D-19) , QL, map clerk-P CR, respi rator y speci men covid-19 PCR overall result (neg) normal NEGAT SHREYAS 2018- novel Coron aviru s (2018nCoV ) not detec ludin by real- time RT-PC R. Note: If clini peggy suspi cion for COVID -19 is high, emely nue to maint ain preca ution s and consi steve repea t testi ng. Resul t repor ludin to [facility]. To preve nt error s in diagn [...] perfo rmed by real time PCR [facility]ili [facility] ALPHONSO [employer] SARS- CoV-2 test. Not Available [facility] (Centralized Electronic Ordering - All Locations) Patient Can Go To The Location Of Their Choice, [id number] 10/28/2019 16:06:14 08/04/1908/04/2020 cultu re throhaider t specimen description THROAT SWAB Not Available [facility] (Centralized Electronic Ordering - All Locations) Patient Can Go To The Location Of Their Choice, [address] 08/06/2020 07:24:37 08/04/1908/04/2020 cultu re, throa t [...] brown am No observ ation record ed. [email or web address] Not Available 2019 14:14:52 08/04/19 21 08/03/2020 XR, chest , 2 view No observ ation record ed. [facility] [address] [facility] [facility] [address], [place], [address], 08/03/2020 18:06:34 Result Notes None recorded. Procedures Surgical History Date Name Laterality Status Provider Name and Address Organization Details Recorded Time 08/04/19 Medication Review completed Edel Marie NP [address], [place], [address], [place] [facility] 08/03/2020 11:54:59 10/27/19 ECG Interpretation - DH completed DAISY SEGUNDO NP [address], [place], [address], [place] [facility] 10/27/2019 19:42:17 Imaging Results [...] Smoker DAISY SEGUNDO NP [address], [place], [address], [place] [facility] 10/27/2019 19:11:55 Do You Have An Advance Directive? No [email or web address] Information not available 10/27/2019 What Is Your Code Status? Full Code [email or web address] Information not available 10/27/2019 Within The Past 12 Months, Has It Happened That The Food You Bought Just Didn't Last And You Didn't Have Money To Get More. No [email or web address] Information not available 10/27/2019 Within The Past 12 Months, Have You Worried That Your Food Would Run Out Before You Got Money To Buy More. No [email or web address] Information not available 10/27/2019 Fall Risk: Do You Feel Unsteady When Standing Or Walking? No [email or web address] Information not available 10/27/2019 We Know That How And When People Interact With Friends And Family Can Be Very Different From Person To Person. How Often Do You Have The Opportunity To See Or Talk To People That You Care About And Feel Close To? (Ex: Talking To Friends On The Phone Or Visiting Friends Or Family Or Going To [employer] Or Club Meetings) 3 Or 4 Times Per Week [email or web address] Information not available 10/27/2019 Excessive Alcohol Or Drug Use No Information not available 10/27/2019 We Know From Many Of Our Patients That Covering All Of Their Costs Can Be Difficult At Times. This Can Cause Stress And Impact Health. In The Past Year, Have You Been Unable To Get Any Of The Following When It Was Really Needed? No [email or web address] Information not available 10/27/2019 What Is Your Housing Situation Today? I Have Housing [email or web address] Information not available 10/27/2019 Would You Like Help Connecting To Resources? None [email or web address] Information not available 10/27/2019 Sex: Unknown Functional Status None recorded. Mental Status None recorded. Family History Relationship Description Onset Age of this Age Resolved Age Notes LastModified by Organization Details LastModified Time Father Coronary arterioscler osis [email or web address] Not available 12/2019 19:12:27 Medical History Condition Response Diabetes N Coronary Artery Disease N High Cholesterol Y Pulmonary Embolism N Cancer N Hypertension N Stroke N Asthma N COPD N Depression N Kidney Disease N Past Encounters Encounter ID Performer Location Encounter Start Date Encounter Closed Date Diagnosis/Indication Diagnosis SNOMED-CT Code Diagnosis ICD10 Code Diagnosis IMO Codes Diagnosis Note [id number] DAISY SEGUNDO NP [facility] [address] [place] [address] 10/27/2019 19:09:51 10/30/2019 11:37:39 Exposure to communicable disease 516025567 Z20.828 ECG: sinus arrhythmia 42 7306649 R94.31 [id number] Edel Marie NP [facility] [address] [place] [address] 08/03/2020 11:34:33 08/04/2020 11:13:18 Productive cough 87813033 R05 Acute pharyngitis 540001 003 J02.9 Viral uppe r respiratory tract infection 088276155 J06.9 Health Concerns Section Related Observation LastModified by Organization Detai ls LastModified Time None Recorded Concern Status LastModified by Organization Details LastModified Time None Recorded Advance Directives Directive N: Payers Insurance Date Sequence Insurance Name Policy Number Policy Zamorano Covered Member ID Zamorano Member ID Guarantor Name 08/04/2020 1 [place] [employer] Kolton Bosch [id number] Kolton Bosch 08/04/2020 2 [place] Kolton Bosch [id number] Kolton Bosch 10/27/2019 1 *SELF PAY* Kolton Bosch [id number] Kolton Bosch 10/30/2019 2 [facility] Kolton Bosch [id number] Kolton Bosch Notes Date Note Type Note Provider Name and Address Organization Details Recorded Time 10/27/2019 text/html COVID-19 Symptom s July 2019Reported by Patient This is a 74-year-old male that is a new patient [facility]. He has medical history significant for hyperlipidemia. He was recently on vacation in the [facility]. [facility] testing as it is now [...] 19. DAISY SEGUNDO NP [address], [place], [address], [place] [facility] 10/27/2019 21:39:23 08/03/2020 text/html COVID-19 Symptom s July 2019Reported by Patient This is a 74-year-old male that is known to [facility] but new to this provider with a [...] pneumonia. Edel Marie NP [address], [place], [address], [place] [facility] 08/03/2020 14:06:32
== END 2025-01-19 11:32 | disposition home or self-care (01) ==
LOC: HO.HMGAL 11:31
PROVIDERS: PCP Nurse Practitioner; Visit Provider Registered Nurse Emergency
DX: J30.89 Other allergic rhinitis (principal)
CPT/HCPCS: 95117; 95165

== ENCOUNTER 2025-01-26 13:03 | Outpatient (AMB) | payer MEDICARE, SELFPAY ==
--- OUTSIDE RECORDS SUMMARY | 2025-01-26 15:10 | XMS_ITS | Clinical Summary ---
Author Organization [facility] Address [address] [address] Phone Care Team Providers Care Third Grade Teacher Name Role Phone Arcadio Rivas DO Primary Care Provider [phone] Allergies No known active allergies Medications aspirin [...] Office Visit [facility] [address] [phone] Madhu Delcid MD Stone in kidney (Primary [...] [facility] [address] [phone] Madhu Delcid MD [address] [address] Health Maintenance Due Date Last [...] 9.2 8.7 - 10.7 mg/dL eGFR Non-Afr Australian 78 Total Bilirubin 1.70 MG/DL ALT (SGPT) 18 U/L AST (SGOT) 22 U/L Alkaline Phosphatase 55 U/L Hemoglobin A1C 6.0 4.0 - 6.0 Triglycerides 57 Cholesterol, Total 117 HDL 59 mg/dL VLDL Cholesterol Michael 13 LDL-Calculated 45 Non HDL Cholesterol 58 11/10/2024 us Historical Provider LAB BLOOD ORDERABLES Chiquita l Result from Last 3 Months Insurance Medicare [facility] Medicare [facility] Care Teams Third Grade Teacher Relationship Specialty Start Date End Date Arcadio Rivas DO [address] [place] [address] PCP - General Family Medicine 07/16/23
--- OUTSIDE RECORDS SUMMARY | 2025-01-26 15:10 | XMS_ITS | Data Portability ---
Author Organization [place] - [facility] Address [address] [place] [id number] Care Team Providers Care Rotary Furnace Operator Name Role Phone ELIZABETH OLSON Primary Care Provider [phone] Assessment Encounter Date Assessment Date Assessment LastModified by Organization Details LastModified Time 10/27/2019 10/27/2019 Overview/History :T his is a 74-year-old male that is a new patient [facility]. He contacted [facility] for COVID-19 testing. He recently [...] after care of this patient according to [facility]'s infection prevention protocols. The patient under our [...] model. Time On Scene with Patient: 00:48:16 [email or web address] Not available 10/27/2019 21:39:17 08/03/2020 08/03/2020 Overview/History [...] after care of this patient according to [facility] infection prevention protocols. Not available 08/03/2020 12:59:46 Plan of Treatment Reminders Order Date Submit Date Provider Last Modified By Organization Details Last Modified Time Details Appointments None recorded. Lab streptococc us group A, culture, throat 2020 [place] [facility] (Centralized Electronic Ordering - All Locations), Patient Can Go To The Location Of Their Choice, [address] 07:25:28 culture, throat 2020 [place] [facility] (Centralized Electronic Ordering - All Locations), Patient Can Go To The Location Of Their Choice, 07:24:37 SARS CoV 2 RNA (COVID-19), QL, production technician-PCR, respiratory specimen 2019 020 [place] [facility] (Centralized Electronic Ordering - All Locations), Patient Can Go To The Location Of Their Choice, [address] 0 16:06:14 Referral None recorded. Procedures None recorded. Surgeries None recorded. Imaging XR, chest, 2 view - evaluate for pneumonia 2020 [facility] (Radiology), [address] [place] [address], [address], 15:36:36 Medication Orders benzonatate 100 mg capsule 2020 [email or web address] [facility]/Pharmacy #[id number], [address] [place] [address], [address], 14:02:49 Patient TargetsNo targets recorded. Patient Instructions Encounter Date Encounter Id Patient Instructions Last Modified By Organization Details Last Modified Time 10/27/[id number] WE CHECKED AN EC G ON YOU TODAY, YOU WERE FOUND TO HAVE SINUS ARRHYTHMIA, THIS IS BENIGN You will be advised of your COVID-19 results as they become available. A [facility] production team member will contact you to let you know [...] to your local emergency facility: Notify the chain testing machine operator that you are seeking care for someone who has or may have COVID-19. [email or web address] Not available 10/27/2019 19:43:16 08/03/2020 [id number] We have ordered a CXR. Please bring paper to [facility] to have CXR obtained. We will [...] condition between 8am-10pm, please call [facility] at [phone] to help navigate your care. [email or web address] Not available 08/03/2020 12:23:39 Reason for Referral None Reported. Results Created Date Observation Date Name Description Value Unit Range Abnormal Flag Note LastModifiedBy Organization Detail LastModifiedTime 10/27/19 20 10/28/2019 SARS CoV 2 RNA (COVI D-19) , QL, production technician-P CR, respi rator y speci men covid-19 PCR overall result (neg) normal NEGAT SHREYAS 2018- novel Coron aviru s (2018nCoV ) not detec ludin by real- time RT-PC R. Note: If clini peggy suspi cion for COVID -19 is high, emely nue to maint ain preca ution s and consi steve repea t testi ng. Resul t repor ludin to [facility]. To preve nt error s in [...] perfo rmed by real time PCR utili [facility] ALPHONSO unrival0 SARS- CoV-2 test. Not Available [facility] (Centralized Electronic Ordering - All Locations) Patient Can Go To The Location Of Their Choice, [id number] 10/28/2019 16:06:14 08/04/1908/04/2020 cultu re throhaider t specimen description THROAT SWAB Not Available [facility] (Centralized Electronic Ordering - All Locations) Patient Can Go To The Location Of Their Choice, [address] 08/06/2020 07:24:37 08/04/1908/04/2020 cultu re, throa t [...] brown am No observ ation record ed. [email or web address] Not Available 2019 14:14:52 08/04/19 21 08/03/2020 XR, chest , 2 view No observ ation record ed. [email or web address] [facility] [address] [address], [place], [address], 08/03/2020 18:06:34 Result Notes None recorded. Procedures Surgical History Date Name Laterality Status Provider Name and Address Organization Details Recorded Time 08/04/19 Medication Review completed Edel Marie NP [address], [place], [address], [place] [facility] 08/03/2020 11:54:59 10/27/19 ECG Interpretation - DH completed DAISY SEGUNDO NP [address], [place], [address], [place] [facility] 10/27/2019 19:42:17 Imaging Results [...] Smoker DAISY SEGUNDO NP [address], [place], [address], [place] [facility] 10/27/2019 19:11:55 Do You Have An Advance Directive? No [email or web address] Information not available 10/27/2019 What Is Your Code Status? Full Code [email or web address] Information not available 10/27/2019 Within The Past 12 Months, Has It Happened That The Food You Bought Just Didn't Last And You Didn't Have Money To Get More. No [email or web address] Information not available 10/27/2019 Within The Past 12 Months, Have You Worried That Your Food Would Run Out Before You Got Money To Buy More. No [email or web address] Information not available 10/27/2019 Fall Risk: Do You Feel Unsteady When Standing Or Walking? No [email or web address] Information not available 10/27/2019 We Know That How And When People Interact With Friends And Family Can Be Very Different From Person To Person. How Often Do You Have The Opportunity To See Or Talk To People That You Care About And Feel Close To? (Ex: Talking To Friends On The Phone Or Visiting Friends Or Family Or Going To Islam Or Club Meetings) 3 Or 4 Times Per Week Information not available 10/27/2019 Excessive Alcohol Or Drug Use No [email or web address] Information not available 10/27/2019 We Know From Many Of Our Patients That Covering All Of Their Costs Can Be Difficult At Times. This Can Cause Stress And Impact Health. In The Past Year, Have You Been Unable To Get Any Of The Following When It Was Really Needed? No [email or web address] Information not available 10/27/2019 What Is Your Housing Situation Today? I Have Housing [email or web address] Information not available 10/27/2019 Would You Like Help Connecting To Resources? None [email or web address] Information not available 10/27/2019 Sex: Unknown Functional Status None recorded. Mental Status None recorded. Family History Relationship Description Onset Age of this Age Resolved Age Notes LastModified by Organization Details LastModified Time Father Coronary arterioscler osis [email or web address] Not available 12/2019 19:12:27 Medical History Condition Response Coronary Artery Disease N COPD N Depression N Cancer N Stroke N High Cholesterol Y Kidney Disease N Diabetes N Asthma N Pulmonary Embolism N Hypertension N Past Encounters Encounter ID Performer Location Encounter Start Date Encounter Closed Date Diagnosis/Indication Diagnosis SNOMED-CT Code Diagnosis ICD10 Code Diagnosis IMO Codes Diagnosis Note [id number] DAISY SEGUNDO NP [facility] [address] [place] [address] 10/27/2019 19:09:51 10/30/2019 11:37:39 Exposure to communicable disease 503467250 Z20.828 ECG: sinus arrhythmia 42 0653115 R94.31 [id number] Edel Marie NP [facility] [address] [place] [address] 08/03/2020 11:34:33 08/04/2020 11:13:18 Productive cough 55249267 R05 Acute pharyngitis 871329 003 J02.9 Viral uppe r respiratory tract infection 895449669 J06.9 Health Concerns Section Related Observation LastModified by Organization Detai ls LastModified Time None Recorded Concern Status LastModified by Organization Details LastModified Time None Recorded Advance Directives Directive N: Payers Insurance Date Sequence Insurance Name Policy Number Policy Zamorano Covered Member ID Zamorano Member ID Guarantor Name 08/04/2020 1 [place] Kolton Bosch [id number] Kolton Bosch 08/04/2020 2 [place] Kolton Bosch [id number] Kolton Bosch 10/27/2019 1 *SELF PAY* Kolton Bosch [id number] Kolton Bosch 10/30/2019 2 [facility] GLOBAL Kolton Bosch [id number] Kolton Bosch Notes Date Note Type Note Provider Name and Address Organization Details Recorded Time 10/27/2019 text/html COVID-19 Symptom s July 2019Reported by Patient This is a 74-year-old male that is a new patient [facility]. He has medical history significant for hyperlipidemia. He was recently on vacation in the [facility]. He contacted [facility] for COVID testing as it [...] 19. DAISY SEGUNDO NP [address], [place], [address], [place] [facility] 10/27/2019 21:39:23 08/03/2020 text/html COVID-19 Symptom s July 2019Reported by Patient This is a 74-year-old male that is known to [facility] but new to this provider [...] pneumonia. Edel Marie NP [address], [place], [address], [place] [facility] 08/03/2020 14:06:32
== END 2025-01-26 13:05 | disposition home or self-care (01) ==
LOC: HO.HMGAL 13:03
PROVIDERS: PCP Nurse Practitioner; Visit Provider Registered Nurse Emergency
DX: J30.89 Other allergic rhinitis (principal)
CPT/HCPCS: 95117; 95165

== ENCOUNTER 2025-02-02 11:25 | Outpatient (AMB) | payer MEDICARE, SELFPAY ==
--- OUTSIDE RECORDS SUMMARY | 2025-02-02 23:40 | XMS_ITS | Data Portability ---
Author Organization [place] - [facility] Address [address] [place] [address] Care Team Providers Care Ladler Name Role Phone ELIZABETH OLSON Primary Care Provider [phone] Assessment Encounter Date Assessment Date Assessment LastModified by Organization Details LastModified Time 10/27/2019 10/27/2019 Overview/History :T his is a 74-year-old male that is a new patient [facility]. He contacted [facility] for COVID-19 testing. He recently was on [...] after care of this patient according to [facility] infection prevention protocols. The patient under [...] model. Time On Scene with Patient: 00:48:16 [email or web address] Not available 10/27/2019 21:39:17 08/03/2020 08/03/2020 Overview/History [...] after care of this patient according to [facility]'s infection prevention protocols. [email or web address] Not available 08/03/2020 12:59:46 Plan of Treatment Reminders Order Date Submit Date Provider Last Modified By Organization Details Last Modified Time Details Appointments None recorded. Lab streptococc us group A, culture, throat 2020 [place] [facility] (Centralized Electronic Ordering - All Locations), Patient Can Go To The Location Of Their Choice, [id number] 07:25:28 culture, throat 2020 [place] [facility] (Centralized Electronic Ordering - All Locations), Patient Can Go To The Location Of Their Choice, 07:24:37 SARS CoV 2 RNA (COVID-19), QL, assistant vice president-PCR, respiratory specimen 2019 020 [place] [facility] (Centralized Electronic Ordering - All Locations), Patient Can Go To The Location Of Their Choice, [address] 0 16:06:14 Referral None recorded. Procedures None recorded. Surgeries None recorded. Imaging XR, chest, 2 view - evaluate for pneumonia 2020 [facility] (Radiology), [address] [place] [address], [address], 15:36:36 Medication Orders benzonatate 100 mg capsule 2020 [email or web address] [facility]/Pharmacy #[id number], [address] [place] [address], [address], 14:02:49 Patient TargetsNo targets recorded. Patient Instructions Encounter Date Encounter Id Patient Instructions Last Modified By Organization Details Last Modified Time 10/27/[id number] WE CHECKED AN EC G ON YOU TODAY, YOU WERE FOUND TO HAVE SINUS ARRHYTHMIA, THIS IS BENIGN You will be advised of your COVID-19 results as they become available. A [facility] residential team leader will contact you to let you know [...] to your local emergency facility: Notify the cloth shrinking machine operator helper that you are seeking care for someone who has or may have COVID-19. [email or web address] Not available 10/27/2019 19:43:16 08/03/2020 [id number] We have ordered a CXR. Please bring paper to [facility] to have CXR obtained. We will [...] condition between 8am-10pm, please call [facility] at [phone] to help navigate your care. [email or web address] Not available 08/03/2020 12:23:39 Reason for Referral None Reported. Results Created Date Observation Date Name Description Value Unit Range Abnormal Flag Note LastModifiedBy Organization Detail LastModifiedTime 10/27/19 20 10/28/2019 SARS CoV 2 RNA (COVI D-19) , QL, assistant vice president-P CR, respi rator y speci men covid-19 PCR overall result (neg) normal NEGAT SHREYAS 2018- novel Coron aviru s (2018nCoV ) not detec ludin by real- time RT-PC R. Note: If clini peggy suspi cion for COVID -19 is high, emely nue to maint ain preca ution s and consi steve repea t testi ng. Resul t repor ludin to [facility]. To preve nt error s in [...] perfo rmed by real time PCR utili [facility] ALPHONSO Optrace0 SARS- CoV-2 test. Not Available [facility] (Centralized Electronic Ordering - All Locations) Patient Can Go To The Location Of Their Choice, [address] 10/28/2019 16:06:14 08/04/1908/04/2020 cultu re throhaider t specimen description THROAT SWAB Not Available [facility] (Centralized Electronic Ordering - All Locations) Patient Can Go To The Location Of Their Choice, [id number] 08/06/2020 07:24:37 08/04/1908/04/2020 cultu re, throa t [...] 2 view No observ ation record ed. [email or web address] [facility] [address] [address], [place], [address], 08/03/2020 18:06:34 Result Notes None recorded. Procedures Surgical History Date Name Laterality Status Provider Name and Address Organization Details Recorded Time 08/04/19 Medication Review completed Edel Marie NP [address], [place], [address], [place] [facility] 08/03/2020 11:54:59 10/27/19 ECG Interpretation - DH completed DAISY SEGUNDO NP [address], [place], [address], [place] [facility] 10/27/2019 19:42:17 Imaging Results [...] Smoker DAISY SEGUNDO NP [address], [place], [address], [place] [facility] 10/27/2019 19:11:55 Do You Have An Advance Directive? No [email or web address] Information not available 10/27/2019 What Is Your Code Status? Full Code [email or web address] Information not available 10/27/2019 Within The Past 12 Months, Has It Happened That The Food You Bought Just Didn't Last And You Didn't Have Money To Get More. No Information not available 10/27/2019 Within The Past 12 Months, Have You Worried That Your Food Would Run Out Before You Got Money To Buy More. No [email or web address] Information not available 10/27/2019 Fall Risk: Do You Feel Unsteady When Standing Or Walking? No [email or web address] Information not available 10/27/2019 We Know That How And When People Interact With Friends And Family Can Be Very Different From Person To Person. How Often Do You Have The Opportunity To See Or Talk To People That You Care About And Feel Close To? (Ex: Talking To Friends On The Phone Or Visiting Friends Or Family Or Going To Pentecostal[employer] Or Club Meetings) 3 Or 4 Times Per Week [email or web address] Information not available 10/27/2019 Excessive Alcohol Or Drug Use No Information not available 10/27/2019 We Know From Many Of Our Patients That Covering All Of Their Costs Can Be Difficult At Times. This Can Cause Stress And Impact Health. In The Past Year, Have You Been Unable To Get Any Of The Following When It Was Really Needed? No [email or web address] Information not available 10/27/2019 What Is Your Housing Situation Today? I Have Housing [email or web address] Information not available 10/27/2019 Would You Like Help Connecting To Resources? None [email or web address] Information not available 10/27/2019 Sex: Unknown Functional Status None recorded. Mental Status None recorded. Family History Relationship Description Onset Age of this Age Resolved Age Notes LastModified by Organization Details LastModified Time Father Coronary arterioscler osis [email or web address] Not available 12/2019 19:12:27 Medical History Condition Response Coronary Artery Disease N COPD N Depression N Cancer N Stroke N High Cholesterol Y Kidney Disease N Diabetes N Asthma N Pulmonary Embolism N Hypertension N Past Encounters Encounter ID Performer Location Encounter Start Date Encounter Closed Date Diagnosis/Indication Diagnosis SNOMED-CT Code Diagnosis ICD10 Code Diagnosis IMO Codes Diagnosis Note [id number] DAISY SEGUNDO NP [facility] [address] [place] [address] 10/27/2019 19:09:51 10/30/2019 11:37:39 Exposure to communicable disease 108607932 Z20.828 ECG: sinus arrhythmia 42 9808095 R94.31 [id number] Edel Marie NP [facility] [address] [place] [address] 08/03/2020 11:34:33 08/04/2020 11:13:18 Productive cough 05306611 R05 Acute pharyngitis 332803 003 J02.9 Viral uppe r respiratory tract infection 452419183 J06.9 Health Concerns Section Related Observation LastModified by Organization Detai ls LastModified Time None Recorded Concern Status LastModified by Organization Details LastModified Time None Recorded Advance Directives Directive N: Payers Insurance Date Sequence Insurance Name Policy Number Policy Zamorano Covered Member ID Zamorano Member ID Guarantor Name 08/04/2020 1 [place] Kolton Bosch [id number] Kolton Bosch 08/04/2020 2 [place] Kolton Bosch [id number] Kolton Bosch 10/27/2019 1 *SELF PAY* Kolton Bosch [id number] Kolton Bosch 10/30/2019 2 [facility] GLOBAL Kolton Bosch [id number] Kolton Bosch Notes Date Note Type Note Provider Name and Address Organization Details Recorded Time 10/27/2019 text/html COVID-19 Symptom s July 2019Reported by Patient This is a 74-year-old male that is a new patient [facility]. He has medical history significant for hyperlipidemia. He was recently on vacation in the [facility]. He contacted [facility] for COVID testing as it is now [...] 19. DAISY SEGUNDO NP [address], [place], [address], [place] [facility] 10/27/2019 21:39:23 08/03/2020 text/html COVID-19 Symptom s July 2019Reported by Patient This is a 74-year-old male that is known to [facility] but new to this provider with a [...] pneumonia. Edel Marie NP [address], [place], [address], [place] [facility] 08/03/2020 14:06:32
== END 2025-02-02 11:28 | disposition home or self-care (01) ==
LOC: HO.HMGAL 11:25
PROVIDERS: PCP Nurse Practitioner; Visit Provider Registered Nurse Emergency
DX: J30.89 Other allergic rhinitis (principal)
CPT/HCPCS: 95117; 95165

== ENCOUNTER 2025-02-09 14:53 | Outpatient (AMB) | payer MEDICARE, SELFPAY ==
--- OUTSIDE RECORDS SUMMARY | 2025-02-09 19:42 | XMS_ITS | Data Portability ---
Author Organization [place] - [facility] Address [address] [place] [address] Care Team Providers Care Audio Visual Specialist Name Role Phone ELIZABETH OLSON Primary Care Provider Assessment Encounter Date Assessment Date Assessment LastModified by Organization Details LastModified Time 10/27/2019 10/27/2019 Overview/History :T his is a 74-year-old male that is a new patient [facility]. He contacted [facility] for COVID-19 testing. He recently was [...] after care of this patient according to [facility]'s infection prevention protocols. The patient under our [...] model. Time On Scene with Patient: 00:48:16 [email or web address] Not available 10/27/2019 21:39:17 08/03/2020 08/03/2020 Overview/History [...] after care of this patient according [facility]. [email or web address] Not available 08/03/2020 12:59:46 Plan of Treatment Reminders Order Date Submit Date Provider Last Modified By Organization Details Last Modified Time Details Appointments None recorded. 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 Procedures None recorded. Surgeries None recorded. Imaging XR, chest, 2 view - evaluate for pneumonia 2020 [facility] (Radiology), [address] [place] [address], [address], 15:36:36 Medication Orders benzonatate 100 mg capsule 2020 [facility]/Pharmacy #[id number], [address] [place] [address], [address], 14:02:49 Patient TargetsNo targets recorded. Patient Instructions Encounter Date Encounter Id Patient Instructions Last Modified By Organization Details Last Modified Time 10/27/[id number] WE CHECKED AN EC G ON YOU TODAY, YOU WERE FOUND TO HAVE SINUS ARRHYTHMIA, THIS IS BENIGN You will be advised of your COVID-19 results as they become available. A [facility] team psychologist will contact you to let you know [...] to your local emergency facility: Notify the freight elevator operator that you are seeking care for someone who has or may have COVID-19. [email or web address] Not available 10/27/2019 19:43:16 08/03/2020 [id number] We have ordered a CXR. Please bring paper to [facility] to have CXR obtained. We will [...] condition between 8am-10pm, please call [facility] at [phone] to help navigate your care. Not available 08/03/2020 12:23:39 Reason for Referral None Reported. 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 Note: If clini peggy suspi cion for COVID -19 is high, emely nue to maint ain preca ution s and consi steve repea t testi ng. Resul t repor ludin to [facility]. To preve nt error s [...] perfo rmed by real time PCR utili [facility] [employer] SARS- CoV-2 test. Not Available [facility] (Centralized Electronic Ordering - All Locations) Patient Can Go To The Location Of Their Choice, [id number] 10/28/2019 16:06:14 08/04/1908/04/2020 cultu re throhaider t specimen description THROAT SWAB Not Available [facility] (Centralized Electronic Ordering - All Locations) Patient Can Go To The Location Of Their Choice, [address] 08/06/2020 07:24:37 08/04/1908/04/2020 cultu re, throa t [...] brown am No observ ation record ed. [email or web address] Not Available 2019 14:14:52 08/04/19 21 08/03/2020 XR, chest , 2 view No observ ation record ed. [email or web address] [facility] [address], [place], [address], 08/03/2020 18:06:34 Result Notes None recorded. Procedures Surgical History Date Name Laterality Status Provider Name and Address Organization Details Recorded Time 08/04/19 Medication Review completed Edel Marie NP [address], [place], [address], [place] [facility] 08/03/2020 11:54:59 10/27/19 ECG Interpretation - DH completed DAISY SEGUNDO NP [address], [place], [address], [place] [facility] 10/27/2019 19:42:17 Imaging Results [...] Recorded Body temperature Respiratory rate Oxygen saturation Heart rate Systolic And Diastolic Provider Name and Address Organization Details Last Updated DateTime 1 96.4 [degF] 18 /min 95 % 72 /min 122/70 mm[Hg] Not Available [facility] 1 12:19:46 Date Recorded Respiratory rate Body temperature Heart rate Oxygen saturation Systolic And Diastolic Provider Name and Address Organization Details Last Updated DateTime 0 14 /min 97.6 [degF] 64 /min 98 % 92/54 mm[Hg] Not Available [facility] 0 19:57:12 Social History Question Answer Notes LastModified by Organizat ion Details LastModified Time Tobacco Smoking Status Never Smoker DAISY SEGUNDO NP [address], [place], [address], [place] [facility] 10/27/2019 19:11:55 Do You Have An Advance Directive? No [email or web address] Information not available 10/27/2019 What Is Your Code Status? Full Code [email or web address] Information not available 10/27/2019 Within The Past 12 Months, Has It Happened That The Food You Bought Just Didn't Last And You Didn't Have Money To Get More. No [email or web address] Information not available 10/27/2019 Within The Past 12 Months, Have You Worried That Your Food Would Run Out Before You Got Money To Buy More. No [email or web address] Information not available 10/27/2019 Fall Risk: Do You Feel Unsteady When Standing Or Walking? No [email or web address] Information not available 10/27/2019 We Know That [...] Meetings) 3 Or 4 Times Per Week [email or web address] Information not available 10/27/2019 Excessive Alcohol Or Drug Use No [email or web address] Information not available 10/27/2019 We Know From Many Of Our Patients That Covering All Of Their Costs Can Be Difficult At Times. This Can Cause Stress And Impact Health. In The Past Year, Have You Been Unable To Get Any Of The Following When It Was Really Needed? No [email or web address] Information not available 10/27/2019 What Is Your Housing Situation Today? I Have Housing [email or web address] Information not available 10/27/2019 Would You Like Help Connecting To Resources? None [email or web address] Information not available 10/27/2019 Sex: Unknown Functional Status None recorded. Mental Status None recorded. Family History Relationship Description Onset Age of this Age Resolved Age Notes LastModified by Organization Details LastModified Time Father Coronary arterioscler osis [email or web address] Not available 12/2019 19:12:27 Medical History Condition Response Coronary Artery Disease N COPD N Depression N Diabetes N Cancer N Stroke N Asthma N High Cholesterol Y Pulmonary Embolism N Hypertension N Kidney Disease N Past Encounters Encounter ID Performer Location Encounter Start Date Encounter Closed Date Diagnosis/Indication Diagnosis SNOMED-CT Code Diagnosis ICD10 Code Diagnosis IMO Codes Diagnosis Note [id number] DAISY SEGUNDO NP [facility] [address] [place] [address] 10/27/2019 19:09:51 10/30/2019 11:37:39 Exposure to communicable disease 013122959 Z20.828 ECG: sinus arrhythmia 42 4543789 R94.31 [id number] Edel Marie NP [facility] [address] [place] [address] 08/03/2020 11:34:33 08/04/2020 11:13:18 Productive cough 99961860 R05 Acute pharyngitis 234812 003 J02.9 Viral uppe r respiratory tract infection 498748032 J06.9 Health Concerns Section Related Observation LastModified by Organization Detai ls LastModified Time None Recorded Concern Status LastModified by Organization Details LastModified Time None Recorded Advance Directives Directive N: Payers Insurance Date Sequence Insurance Name Policy Number Policy Zamorano Covered Member ID Zamorano Member ID Guarantor Name 08/04/2020 1 [place] Kolton Bosch [id number] Kolton Bosch 08/04/2020 2 [place] Kolton Bosch [id number] Kolton Bosch 10/27/2019 1 *SELF PAY* Kolton Bosch [id number] Kolton Bosch 10/30/2019 2 [facility] GLOBAL Kolton Bosch [id number] Kolton Bosch Notes Date Note Type Note Provider Name and Address Organization Details Recorded Time 10/27/2019 text/html COVID-19 Symptom s July 2019Reported by Patient This is a 74-year-old male that is a new patient [facility]. He has medical history significant for hyperlipidemia. He was recently on vacation in the [facility]. He contacted [facility] for COVID testing as it is now requirement that if 1 leaves the state upon return they must either have a negative COVID test or complete a 14 day and home quarantine. He is denying any fevers, cough, GI symptoms or loss of sensation of taste or smell. He denies contact with anyone known to have COVID 19. DAISY SEGUNDO, GILBERT [address], [place], [address], [place] [facility] 10/27/2019 21:39:23 08/03/2020 text/html COVID-19 Symptom s July 2019Reported by Patient This is a 74-year-old male that is known to [facility] but new to this provider with [...] pneumonia. Edel Marie NP [address], [place], [address], [place] [facility] 08/03/2020 14:06:32
== END 2025-02-09 14:53 | disposition home or self-care (01) ==
LOC: HO.HMGAL 14:53
PROVIDERS: PCP Nurse Practitioner; Visit Provider Registered Nurse Emergency
DX: J30.89 Other allergic rhinitis (principal)
CPT/HCPCS: 95117; 95165

== ENCOUNTER 2025-02-18 13:51 | Outpatient (AMB) | payer MEDICARE, SELFPAY ==
--- OUTSIDE RECORDS SUMMARY | 2025-02-18 16:35 | XMS_ITS | Patient Health Record ---
Author Organization [facility] Address 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
--- OUTSIDE RECORDS SUMMARY | 2025-02-18 16:35 | XMS_ITS | Data Portability ---
Author Organization [place] [facility] Address [address] [place] [address] Care Team Providers Care Dark Room Attendant Name Role Phone ELIZABETH OLSON Primary Care Provider Assessment Encounter Date Assessment Date Assessment LastModified by Organization Details LastModified Time 10/27/2019 10/27/2019 Overview/History :T his is a 74-year-old male that is a new patient [facility]. He contacted [facility] for COVID-19 testing. He recently was [...] after care of this patient according to [facility]'s infection prevention protocols. The patient under our [...] model. Time On Scene with Patient: 00:48:16 [email or web address] Not available 10/27/2019 21:39:17 08/03/2020 08/03/2020 Overview/History [...] after care of this [facility]. [email or web address] Not available 08/03/2020 12:59:46 Plan of Treatment Reminders Order Date Submit Date Provider Last Modified By Organization Details Last Modified Time Details Appointments None recorded. 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 Procedures None recorded. Surgeries None recorded. Imaging XR, chest, 2 view - evaluate for pneumonia 2020 [facility] (Radiology), [address] [place] [address], [address], 15:36:36 Medication Orders benzonatate 100 mg capsule 2020 [email or web address] [facility]/Pharmacy #[id number], [address] [place] [address], [address], 14:02:49 Patient TargetsNo targets recorded. Patient Instructions Encounter Date Encounter Id Patient Instructions Last Modified By Organization Details Last Modified Time 10/27/[id number] WE CHECKED AN EC G ON YOU TODAY, YOU WERE FOUND TO HAVE SINUS ARRHYTHMIA, THIS IS BENIGN You will be advised of your COVID-19 results as they become available. A [facility] project manager/team coach will contact you to let you know [...] to your local emergency facility: Notify the brine mixer operator that you are seeking care for someone who has or may have COVID-19. [email or web address] Not available 10/27/2019 19:43:16 08/03/2020 [id number] We have ordered a CXR. Please bring paper to [facility] to have CXR obtained. We will [...] condition between 8am-10pm, please call [facility] at [phone] to help navigate your care. [email or web address] Not available 08/03/2020 12:23:39 Reason for Referral None Reported. 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 Note: If clini peggy suspi cion for COVID -19 is high, emely nue to maint ain preca ution s and consi steve repea t testi ng. Resul t repor ludin to [facility]. To preve nt error s in [...] perfo rmed by real time PCR utili [facility] [employer] SARS- CoV-2 test. Not Available [facility] (Centralized Electronic Ordering - All Locations) Patient Can Go To The Location Of Their Choice, [id number] 10/28/2019 16:06:14 08/04/1908/04/2020 cultu re throhaider t specimen description THROAT SWAB Not Available [facility] (Centralized Electronic Ordering - All Locations) Patient Can Go To The Location Of Their Choice, [address] 08/06/2020 07:24:37 08/04/1908/04/2020 cultu re, throa t [...] brown am No observ ation record ed. [email or web address] Not Available 2019 14:14:52 08/04/19 21 08/03/2020 XR, chest , 2 view No observ ation record ed. [email or web address] [facility] [address] [facility] [facility] [address], [place], [address], 08/03/2020 18:06:34 Result Notes None recorded. Procedures Surgical History Date Name Laterality Status Provider Name and Address Organization Details Recorded Time 08/04/19 Medication Review completed Edel Marie NP [address], [place], [address], [place] [facility] 08/03/2020 11:54:59 10/27/19 ECG Interpretation - DH completed DAISY SEGUNDO NP [address], [place], [address], [place] [facility] 10/27/2019 19:42:17 Imaging Results [...] Smoker DAISY SEGUNDO NP [address], [place], [address], [place] [facility] 10/27/2019 19:11:55 Do You Have An Advance Directive? No [email or web address] Information not available 10/27/2019 What Is Your Code Status? Full Code [email or web address] Information not available 10/27/2019 Within The Past 12 Months, Has It Happened That The Food You Bought Just Didn't Last And You Didn't Have Money To Get More. No [email or web address] Information not available 10/27/2019 Within The Past 12 Months, Have You Worried That Your Food Would Run Out Before You Got Money To Buy More. No [email or web address] Information not available 10/27/2019 Fall Risk: Do You Feel Unsteady When Standing Or Walking? No Information not available 10/27/2019 We Know That How And When People Interact With Friends And Family Can Be Very Different From Person To Person. How Often Do You Have The Opportunity To See Or Talk To People That You Care About And Feel Close To? (Ex: Talking To Friends On The Phone Or Visiting Friends Or Family Or Going To Holiness Or Club Meetings) 3 Or 4 Times Per Week [email or web address] Information not available 10/27/2019 Excessive Alcohol Or Drug Use No [email or web address] Information not available 10/27/2019 We Know From Many Of Our Patients That Covering All Of Their Costs Can Be Difficult At Times. This Can Cause Stress And Impact Health. In The Past Year, Have You Been Unable To Get Any Of The Following When It Was Really Needed? No [email or web address] Information not available 10/27/2019 What Is Your Housing Situation Today? I Have Housing [email or web address] Information not available 10/27/2019 Would You Like Help Connecting To Resources? None [email or web address] Information not available 10/27/2019 Sex: Unknown Functional Status None recorded. Mental Status None recorded. Family History Relationship Description Onset Age of this Age Resolved Age Notes LastModified by Organization Details LastModified Time Father Coronary arterioscler osis [email or web address] Not available 12/2019 19:12:27 Medical History Condition Response Diabetes N Coronary Artery Disease N High Cholesterol Y Pulmonary Embolism N Cancer N Hypertension N Stroke N Asthma N COPD N Depression N Kidney Disease N Past Encounters Encounter ID Performer Location Encounter Start Date Encounter Closed Date Diagnosis/Indication Diagnosis SNOMED-CT Code Diagnosis ICD10 Code Diagnosis IMO Codes Diagnosis Note [id number] DAISY SEGUNDO NP [facility] [address] [place] [address] 10/27/2019 19:09:51 10/30/2019 11:37:39 Exposure to communicable disease 372622362 Z20.828 ECG: sinus arrhythmia 42 3146470 R94.31 [id number] Edel Marie NP [facility] [address] [place] [address] 08/03/2020 11:34:33 08/04/2020 11:13:18 Productive cough 77613643 R05 Acute pharyngitis 088849 003 J02.9 Viral uppe r respiratory tract infection 376637450 J06.9 Health Concerns Section Related Observation LastModified by Organization Detai ls LastModified Time None Recorded Concern Status LastModified by Organization Details LastModified Time None Recorded Advance Directives Directive N: Payers Insurance Date Sequence Insurance Name Policy Number Policy Zamorano Covered Member ID Zamorano Member ID Guarantor Name 08/04/2020 1 [place] Kolton Bosch [id number] Kolton Bosch 08/04/2020 2 [place] Kolton Bosch [id number] Kolton Bosch 10/27/2019 1 *SELF PAY* Kolton Bosch [id number] Kolton Bosch 10/30/2019 2 [facility] GLOBAL Kolton Bosch [id number] Kolton Bosch Notes Date Note Type Note Provider Name and Address Organization Details Recorded Time 10/27/2019 text/html COVID-19 Symptom s July 2019Reported by Patient This is a 74-year-old male that is a new patient [facility]. He has medical history significant for hyperlipidemia. He was recently on vacation in the [facility]. He contacted [facility] for COVID testing as it is [...] 19. DAISY SEGUNDO, GILBERT [address], [place], [address], [place] [facility] 10/27/2019 21:39:23 08/03/2020 text/html COVID-19 Symptom s July 2019Reported by Patient This is a 74-year-old male that is known to [facility] but new to this provider with [...] pneumonia. Edel Marie NP [address], [place], [address], [place] [facility] 08/03/2020 14:06:32
== END 2025-02-18 14:02 | disposition home or self-care (01) ==
LOC: HO.HMGAL 13:51
PROVIDERS: PCP Nurse Practitioner; Visit Provider Registered Nurse Emergency
DX: J30.89 Other allergic rhinitis (principal)
CPT/HCPCS: 95117; 95165

== ENCOUNTER 2025-03-02 13:55 | Outpatient (AMB) | payer MEDICARE, SELFPAY ==
--- OUTSIDE RECORDS SUMMARY | 2025-03-02 20:14 | XMS_ITS | Data Portability ---
Author Organization [place] [facility] Address [address] [place] [id number] Care Team Providers Care Director Of Testing Name Role Phone ELIZABETH OLSON Primary Care Provider Assessment Encounter Date Assessment Date Assessment LastModified by Organization Details LastModified Time 10/27/2019 10/27/2019 Overview/History :T his is a 74-year-old male that is a new patient [facility]. He contacted [facility] for COVID-19 testing. He recently was on [...] of this patient according to [facility]'s infection prevention protocols. The patient under our [...] model. Time On Scene with Patient: 00:48:16 [email or web address] Not available 10/27/2019 21:39:17 08/03/2020 08/03/2020 Overview/History [...] after care of this patient according to [facility] infection prevention protocols. [email or web address] Not available 08/03/2020 12:59:46 Plan of Treatment Reminders Order Date Submit Date Provider Last Modified By Organization Details Last Modified Time Details Appointments None recorded. Lab streptococc us group A, culture, throat 2020 [place] [facility] (Centralized Electronic Ordering - All Locations), Patient Can Go To The Location Of Their Choice, [id number] 07:25:28 culture, throat 2020 [place] [facility] (Centralized Electronic Ordering - All Locations), Patient Can Go To The Location Of Their Choice, 07:24:37 SARS CoV 2 RNA (COVID-19), QL, powerhouse helper-PCR, respiratory specimen 2019 020 [place] [facility] (Centralized Electronic Ordering - All Locations), Patient Can Go To The Location Of Their Choice, [id number] 16:06:14 Referral None recorded. Procedures None recorded. Surgeries None recorded. Imaging XR, chest, 2 view - evaluate for pneumonia 2020 [facility] (Radiology), [address] [place] [address], [address], 15:36:36 Medication Orders benzonatate 100 mg capsule 2020 [email or web address] [facility]/Pharmacy #[id number], [address] [place] [address], [address], 14:02:49 Patient TargetsNo targets recorded. Patient Instructions Encounter Date Encounter Id Patient Instructions Last Modified By Organization Details Last Modified Time 10/27/[id number] WE CHECKED AN EC G ON YOU TODAY, YOU WERE FOUND TO HAVE SINUS ARRHYTHMIA, THIS IS BENIGN You will be advised of your COVID-19 results as they become available. A [facility] fast food team member will contact you to let [...] to your local emergency facility: Notify the micromatic hone operator that you are seeking care for someone who has or may have COVID-19. [email or web address] Not available 10/27/2019 19:43:16 08/03/2020 [id number] We have ordered a CXR. Please bring [...] condition between 8am-10pm, please call [facility] at [phone] to help navigate your care. Not available 08/03/2020 12:23:39 Reason for Referral None Reported. Results Created Date Observation Date Name Description Value Unit Range Abnormal Flag Note LastModifiedBy Organization Detail LastModifiedTime 10/27/19 20 10/28/2019 SARS CoV 2 RNA (COVI D-19) , QL, powerhouse helper-P CR, respi rator y speci men covid-19 PCR overall result (neg) normal NEGAT SHREYAS 2018- novel Coron aviru s (2018nCoV ) not detec ludin by real- time RT-PC R. Note: If clini peggy suspi cion for COVID -19 is high, emely nue to maint ain preca ution s and consi steve repea t testi ng. Resul t repor ludin to [facility]. To preve nt error s in [...] perfo rmed by real time PCR utili [facility] ALPHONSO Parso0 SARS- CoV-2 test. Not Available [facility] (Centralized Electronic Ordering - All Locations) Patient Can Go To The Location Of Their Choice, [id number] 10/28/2019 16:06:14 08/04/1908/04/2020 cultu re throhaider t specimen description THROAT SWAB Not Available [facility] (Centralized Electronic Ordering - All Locations) Patient Can Go To The Location Of Their Choice, [id number] 08/06/2020 07:24:37 08/04/1908/04/2020 cultu re, throa t [...] Their Choice, 08/06/2020 07:25:28 11/06/19 20 10/27/2019 kwabean brown am No observ ation record ed. [email or web address] Not Available 2019 14:14:52 08/04/19 21 08/03/2020 XR, chest , 2 view No observ ation record ed. [facility] [address], [place], [address], 08/03/2020 18:06:34 Result Notes None recorded. Procedures Surgical History Date Name Laterality Status Provider Name and Address Organization Details Recorded Time 08/04/19 Medication Review completed Edel Marie NP [address], [place], [address], [place] [facility] 08/03/2020 11:54:59 10/27/19 ECG Interpretation - DH completed DAISY SEGUNDO NP [address], [place], [address], [place] [facility] 10/27/2019 19:42:17 Imaging Results [...] Smoker DAISY SEGUNDO NP [address], [place], [address], [place] [facility] 10/27/2019 19:11:55 Do You Have An Advance Directive? No [email or web address] Information not available 10/27/2019 What Is Your Code Status? Full Code [email or web address] Information not available 10/27/2019 Within The Past 12 Months, Has It Happened That The Food You Bought Just Didn't Last And You Didn't Have Money To Get More. No [email or web address] Information not available 10/27/2019 Within The Past 12 Months, Have You Worried That Your Food Would Run Out Before You Got Money To Buy More. No [email or web address] Information not available 10/27/2019 Fall Risk: Do You Feel Unsteady When Standing Or Walking? No [email or web address] Information not available 10/27/2019 We Know That How And When People Interact With Friends And Family Can Be Very Different From Person To Person. How Often Do You Have The Opportunity To See Or Talk To People That You Care About And Feel Close To? (Ex: Talking To Friends On The Phone Or Visiting Friends Or Family Or Going To Anglican Or Club Meetings) 3 Or 4 Times Per Week [email or web address] Information not available 10/27/2019 Excessive Alcohol Or Drug Use No [email or web address] Information not available 10/27/2019 We Know From Many Of Our Patients That Covering All Of Their Costs Can Be Difficult At Times. This Can Cause Stress And Impact Health. In The Past Year, Have You Been Unable To Get Any Of The Following When It Was Really Needed? No [email or web address] Information not available 10/27/2019 What Is Your Housing Situation Today? I Have Housing [email or web address] Information not available 10/27/2019 Would You Like Help Connecting To Resources? None [email or web address] Information not available 10/27/2019 Sex: Unknown Functional Status None recorded. Mental Status None recorded. Family History Relationship Description Onset Age of this Age Resolved Age Notes LastModified by Organization Details LastModified Time Father Coronary arterioscler osis [email or web address] Not available 12/2019 19:12:27 Medical History Condition Response Diabetes N Coronary Artery Disease N High Cholesterol Y Pulmonary Embolism N Cancer N Hypertension N Stroke N Asthma N COPD N Depression N Kidney Disease N Past Encounters Encounter ID Performer Location Encounter Start Date Encounter Closed Date Diagnosis/Indication Diagnosis SNOMED-CT Code Diagnosis ICD10 Code Diagnosis IMO Codes Diagnosis Note [id number] DAISY SEGUNDO NP [facility] [address] [place] [address] 10/27/2019 19:09:51 10/30/2019 11:37:39 Exposure to communicable disease 700779821 Z20.828 ECG: sinus arrhythmia 42 5610050 R94.31 [id number] Edel Marie NP [facility] [address] [place] [address] 08/03/2020 11:34:33 08/04/2020 11:13:18 Productive cough 92420551 R05 Acute pharyngitis 698064 003 J02.9 Viral uppe r respiratory tract infection 482151631 J06.9 Health Concerns Section Related Observation LastModified by Organization Detai ls LastModified Time None Recorded Concern Status LastModified by Organization Details LastModified Time None Recorded Advance Directives Directive N: Payers Insurance Date Sequence Insurance Name Policy Number Policy Zamorano Covered Member ID Zamorano Member ID Guarantor Name 08/04/2020 1 [place] [employer] Kolton Bosch [id number] Kolton Bosch 08/04/2020 2 [place] Kolton Bosch [id number] Kolton Bosch 10/27/2019 1 *SELF PAY* Kolton Bosch [id number] Kolton Bosch 10/30/2019 2 [facility] Kolton Bosch [id number] Kolton Bosch Notes Date Note Type Note Provider Name and Address Organization Details Recorded Time 10/27/2019 text/html COVID-19 Symptom s July 2019Reported by Patient This is a 74-year-old male that is a new patient [facility]. He has medical history significant for hyperlipidemia. He was recently on vacation in the [facility]. He contacted [facility] for COVID testing as it is now [...] 19. DAISY SEGUNDO, GILBERT [address], [place], [address], [place] [facility] 10/27/2019 21:39:23 08/03/2020 text/html COVID-19 Symptom s July 2019Reported by Patient This is a 74-year-old male that is known to [facility] but new to this provider with a [...] pneumonia. Edel Marie NP [address], [place], [address], [place] [facility] 08/03/2020 14:06:32
--- OUTSIDE RECORDS SUMMARY | 2025-03-02 20:14 | XMS_ITS | Patient Health Record ---
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
== END 2025-03-02 13:56 | disposition home or self-care (01) ==
LOC: HO.HMGAL 13:55
PROVIDERS: PCP Nurse Practitioner; Visit Provider Registered Nurse Emergency
DX: J30.89 Other allergic rhinitis (principal)
CPT/HCPCS: 95117; 95165